=== PATIENT | female | born 1960 | race Caucasian/White ===

== ENCOUNTER 2016-05-15 10:52 | Day surgery (SDC) | payer MEDICAID ==
[~2016-05-15 10:52] MED LIST: Lactated Ringers 1,000 ML IV SCH; Midazolam 1 MG/ML 2 ML SDV ONE; Propofol 200 MG/20 ML SDV ONE; fentaNYL 100 MCG/2 ML SDV ONE
--- NOTE | 2016-05-15 12:06 | PCM.PREANE ---
Preanesthetic Assessment - Anesthesia/Transfusion/Family Hx Anesthesia History: Prior Anesthesia Without Reaction Family History of Anesthesia Reaction: No Transfusion History: No Prior Transfusion(s) - Review of Systems General: No Symptoms Pulmonary: No Symptoms Cardiovascular: No Symptoms Gastrointestinal: No symptoms Neurological: No Symptoms Other: Reports: None - Physical Assessment NPO Status Date: 05/15/16 NPO Status Time: 09:30 O2 Sat by Pulse Oximetry: 99 Respiratory Rate: 16 Vital Signs: Last Vital Signs Temp 36.7 C 05/15/16 11:18 Pulse 63 05/15/16 11:18 Resp 16 05/15/16 11:18 BP 119/70 05/15/16 11:18 Pulse Ox 99 05/15/16 11:18 Height: 1.6 m Weight: 65.317 kg ASA Class: 2 Mental Status: Alert & Oriented x3 Airway Class: Mallampati = 1 Dentition: Reports: Dentures Lungs: Clear to auscultation, Normal respiratory effort Cardiovascular: Regular Rate, Regular Rhythm - Lab Values: Laboratory Last Values Urine HCG, Qual NEGATIVE (NEGATIVE) 05/15/16 11:15 - Allergies Allergies/Adverse Reactions: Allergies Allergy/AdvReac Type Severity Reaction Status Date / Time milk Allergy Diarrhea Verified 05/10/16 13:04 - Anesthesia Plan Pre-Op Medication Ordered: None - Acknowledgements Anesthesia Type Planned: MAC Pt an Appropriate Candidate for the Planned Anesthesia: Yes Alternatives and Risks of Anesthesia Discussed w Pt/Guardian: Yes Pt/Guardian Understands and Agrees with Anesthesia Plan: Yes PreAnesthesia Questionnaire Other HEENT History: wears glasses, has upper denture Cardiovascular History: Reports: None Respiratory History: Reports: None Gastrointestinal History: Reports: Chronic constipation, Chronic diarrhea, GERD Genitourinary History: Reports: None THREAD MARKER History: Reports: Musculoskeletal History: Reports: Back pain, chronic, Other (see below) Other Musculoskeletal History: chronic shoulder pain Neurological History: Reports: Concussion Psychiatric History: Reports: Anxiety, Depression, PTSD Endocrine/Metabolic History: Reports: None Hematologic History: Reports: None Immunologic History: Reports: None Oncologic (Cancer) History: Reports: None Dermatologic History: Reports: None - Past Surgical History Head Surgeries/Procedures: Reports: Other (see below) HEENT Surgical History: Reports: None Cardiovascular Surgical History: Reports: None GI Surgical History: Reports: None Female Surgical History: Reports: Tubal ligation Endocrine Surgical History: Reports: None Neurological Surgical History: Reports: Other (see below) Other Neurological Surgeries/Procedures: had excess fluid drained from her head when she was a baby Musculoskeletal Surgical History: Reports: None - SUBSTANCE USE Smoking Status *Q: Current Every Day Smoker Tobacco Use Within Last Twelve Months: Cigarettes Second Hand Smoke Exposure: Yes Number of Drinks Per Day: 7 Recreational Drug Use History: No - HOME MEDS Home Medications: Home Meds Losartan [Cozaar] 100 mg PO DAILY 01/11/15 [History] Albuterol [Ventolin HFA] 1 - 2 puff INH ASDIRECTED PRN 04/26/16 [History] Citalopram Hydrobromide [Celexa] 40 mg PO DAILY 04/26/16 [History] Hydrochlorothiazide 25 mg PO DAILY 04/26/16 [History] Pantoprazole Sodium 40 mg PO DAILY 04/26/16 [History] buPROPion HCl [Wellbutrin Xl] 150 mg PO DAILY 04/26/16 [History] busPIRone [Buspar] 5 mg PO BID 04/26/16 [History] traZODone HCl [Trazodone HCl] 100 mg PO ASDIRECTED 04/26/16 [History] - CURRENT (IN HOUSE) MEDS Current Meds: Current Medications Lactated Ringer's (Ringers, Lactated) 1,000 mls @ 125 mls/hr IV ASDIRECTED [facility] Last Admin: 05/15/16 11:18 Dose: 125 mls/hr Discontinued Medications Fentanyl (Sublimaze) Confirm Administered Dose 100 mcg .ROUTE .STK-MED ONE Stop: 05/15/16 08:20 Midazolam HCl (Versed 1 Mg/Ml) Confirm Administered Dose 2 mg .ROUTE .STK-MED ONE Stop: 05/15/16 08:21 Propofol (Diprivan 20 Ml) Confirm Administered Dose 200 mg .ROUTE .STK-MED ONE Stop: 05/15/16 08:20 Preanesthetic Assessment - ANESTHESIA/TRANSFUSION/FAMILY HX Family History of Anesthesia Reaction: No - PHYSICAL ASSESSMENT O2 Sat by Pulse Oximetry: 99 RR: 16 Vital Signs: Last Vital Signs Temp 36.7 C 05/15/16 11:18 Pulse 63 05/15/16 11:18 Resp 16 05/15/16 11:18 BP 119/70 05/15/16 11:18 Pulse Ox 99 05/15/16 11:18 Height: 1.6 m Weight: 65.317 kg NPO Status Date: 05/15/16 NPO Status Time: 09:30 - LAB Values: Laboratory Last Values Urine HCG, Qual NEGATIVE (NEGATIVE) 05/15/16 11:15 - ALLERGIES Allergies/Adverse Reactions: Allergies Allergy/AdvReac Type Severity Reaction Status Date / Time milk Allergy Diarrhea Verified 05/10/16 13:04
[2016-05-15] MEDS ORDERED: Propofol 200 MG/20 ML SDV ONE (12:56)
--- NOTE | 2016-05-15 13:20 | PCM.OPNOTE ---
- General Post-Op/Procedure Note Date of Surgery/Procedure: 05/15/16 Operative Procedure(s): egd w bx. and colonoscopy w bx Findings: gerd and hemorrhoid Pre Op Diagnosis: abd pain Post-Op Diagnosis: Same Anesthesia Technique: Moderate sedation Primary Surgeon: Cedric Tarango Pathology: egd bx colon random bx Complications: None Condition: Good
--- NOTE | 2016-05-15 13:28 | PCM.POSTAN ---
POST ANESTHESIA ASSESSMENT - MENTAL STATUS Mental Status: alert, oriented - RESPIRATORY Respiratory Status: respiratory rate WNL, airway patent, O2 saturation stable - CARDIOVASCULAR CV Status: pulse rate WNL, blood pressure stable - GASTROINTESTINAL GI Status: no symptoms - POST OP HYDRATION Hydration Status: adequate & stable
--- NOTE | 2016-05-15 13:40 | PCM48HPAN ---
Post Anesthesia Note - EVALUATION WITHIN 48HRS OF ANESTHETIC Vital Signs in Normal Range: Yes Patient Participated in Evaluation: Yes Respiratory Function Stable: Yes Airway Patent: Yes Cardiovascular Function Stable: Yes Hydration Status Stable: Yes Pain Control Satisfactory: Yes Nausea and Vomiting Control Satisfactory: Yes Mental Status Recovered: Yes
[2016-05-15 13:43] VITALS: BP 107/61
--- NOTE | 2016-05-15 13:50 | OR ---
SURGEON: Cedric Tarango MD DATE OF PROCEDURE: 05/15/2016 PREOPERATIVE DIAGNOSIS: Abdominal pain. POSTOPERATIVE DIAGNOSES: Gastroesophageal reflux disease and hemorrhoid. PROCEDURE PERFORMED: Colonoscopy with biopsy and EGD with biopsy. COMPLICATION: None. DESCRIPTION OF PROCEDURE: EGD: The patient was taken to the endoscopy room, and with the PRODUCT DEVELOPMENT SPECIALIST, Diprivan was administered. A well-lubricated EGD scope was gently inserted through the oropharynx, down the esophagus, passing through the gastroesophageal junction, into the stomach. The mucosa was examined upon the passage. Any etiology will be noted. Once in the stomach, we continued to advance to the distal antrum, passed through the pylorus into the second portion of the duodenum. Again, the mucosa was examined for any abnormality and etiology. The scope was then retrieved back to the stomach and then retroflexed to look at the fundus of the stomach. If a biopsy was indicated, we will biopsy the antrum, body, and gastroesophageal junction. The air will be sucked out while the scope is retrieved to reduce the patient's discomfort. The patient tolerated the procedure well. There were no intraoperative complications. Dr. Tarango was present through the whole procedure. Prior to surgery, a time-out had been called, the patient identified, procedure identified and antibiotic administered. Colonoscopy: The patient was taken to the endoscopy room. A time out was called, patient identified, and procedure identified. Diprivan was then administrated. Patient went from awake to sleep, hearing doctor talking or door closing is normal. Perineum inspection and digital examination were then performed. A well-lubricated colonoscope was gently inserted through the rectum, advanced past the rectosigmoid junction, the descending colon, splenic flexure, transverse colon, hepatic flexure, ascending colon, arrived to the cecum. Cecum was identified as dictated in the finding. Then the scope was carefully withdrawn while attention was paid to the mucosal surface for any abnormality. Air will be sucked out during the scope withdrawal. At the rectum, retroflexed to examine any rectal diseases, fistula or hemorrhoids. During mucosal examination, random biopsy performed. Patient tolerated procedure well. There were no intraoperative complications, and Dr. Tarango was present throughout the whole procedure. FINDINGS: EGD finding: The patient is easily sedated with PRODUCT DEVELOPMENT SPECIALIST and Diprivan. The patient is soundly snoring. Oropharynx and proximal esophagus are free of disease and no inflammation, stricture, or ulceration observed. Distal esophagus at GE junction at 40, shows very mild salmon color change consistent with GERD. Stomach rugae is normal in appearance. There is no bile or food particle. Antrum is little bit inflamed. There is some speck of blood in the stomach but it was easily displaced by irrigation, suspect coming from either nosebleed or somewhere else and not from the stomach. Duodenum is grossly normal in appearance and the scope retrieved back to the stomach. Retroflexed look at the fundus of stomach, there is no hiatal hernia or other etiologies. Biopsy done at antrum, GE junction at 40, and body and sucked out the air while scope pulling out. Colonoscopy finding. 1. The patient is easily sedated with PRODUCT DEVELOPMENT SPECIALIST and Diprivan. The patient is soundly snoring. 2. Bowel prep is average to good. Very little liquid stool. 3. The patient's colon rather straight forward. Cecum indicated by ileocecal fold, one-to-one indentation, and light immittance. Appendiceal orifice is not observed. Mucosa examined upon scope pulling out. The patient does not have a polyp, mass, growth, inflammation, diverticulosis, stricture, ulceration, or bleeding, none of those. Random biopsy done for abdominal pain. The patient has mild internal hemorrhoids and mild external hemorrhoids. The patient would benefit from repeat colonoscopy 10 years from today or if the biopsy shows otherwise or clinically indicated otherwise. As always, thank you for the kind referral. DACIA DRUMMOND /[id number] GABRIEL
== END 2016-05-15 13:50 | disposition home or self-care (01) ==
LOC: MW.SDS 10:52
PROVIDERS: ATTEND Surgery
DX: K29.50 Unspecified chronic gastritis without bleeding (principal); F41.9 Anxiety disorder, unspecified; F32.9 Major depressive disorder, single episode, unspecified; I10 Essential (primary) hypertension; Z91.011 Allergy to milk products; Z79.899 Other long term (current) drug therapy; F17.210 Nicotine dependence, cigarettes, uncomplicated
CPT/HCPCS: 43239; 45380; 81025; J2250; J3010; J7120; 00740; 88305; 88312; J2704

== ENCOUNTER → 2016-07-12 | Outpatient (CLI) | payer MEDICAID ==
--- NOTE | 2016-07-12 16:48 | CR ---
EXAMINATION: Right shoulder HISTORY: Pain COMPARISON: None TECHNIQUE: 3 views FINDINGS/IMPRESSION: There is no acute osseous abnormality, dislocation, or fracture identified. Bon e mineralization and joint spaces appear normal.
== END ==
LOC: MW.CHORTHO 07:49
PROVIDERS: ATTEND Orthopaedic Surgery
DX: M25.511 Pain in right shoulder (principal)
CPT/HCPCS: 73030-26-RT; 73030-RT

== ENCOUNTER 2016-08-26 10:29 | Emergency (ER) | payer MEDICAID ==
[2016-08-26] MEDS ORDERED: Aspirin 81 MG Tab.Chew PO ONE (10:42)
[2016-08-26] MEDS ORDERED: Sodium Chloride 0.9% 1,000 ML IV ONE (10:42)
[2016-08-26] MEDS ORDERED: Famotidine 20 MG/2 ML SDV IVPUSH ONE (10:42)
[2016-08-26] MEDS ORDERED: Nitroglycerin 0.4 MG Tab.SL SL ONE (10:42)
[2016-08-26] MEDS ORDERED: Alum Hydrox/Mag Hydrox/Simeth 15 ML, Metoclopramide 5 MG, Lidocaine 2% 5 ML PO ONE ×3 (10:42)
[2016-08-26] MEDS ORDERED: Ketorolac 30 MG/ML SDV IVPUSH ONE (10:42)
--- NOTE | 2016-08-26 10:52 | EDM.PDOC ---
ED HPI GENERAL MEDICAL PROBLEM - General Chief Complaint: Chest Pain Stated Complaint: SOB Time Seen by Provider: 08/26/16 10:40 Source of Information: Reports: Patient History Limitations: Reports: No Limitations - History of Present Illness INITIAL COMMENTS - FREE TEXT/NARRATIVE: History of present illness: [56-year-old female comes in complaining of pressure in her chest as well as general feelings of being unwell. Patient is unable to elicit what specifically unwell means to her. When asked if she was dizzy she said she had experienced some transient dizziness but that she just did not feel right in her body.] Review of systems: As per history of present illness and below otherwise all systems reviewed and negative. Past medical history: As per history of present illness and as reviewed below otherwise noncontributory. Surgical history: As per history of present illness and as reviewed below otherwise noncontributory. Social history: No reported history of drug or alcohol abuse. Family history: As per history of present illness and as reviewed below otherwise noncontributory. Physical exam: HEENT: Atraumatic, normocephalic, pupils reactive, negative for conjunctival pallor or scleral icterus, mucous membranes moist, throat clear, neck supple, nontender, trachea midline. Lungs: Clear to auscultation, breath sounds equal bilaterally, chest nontender. Heart: S1S2, regular, negative for clicks, rubs, or JVD. Abdomen: Soft, nondistended, nontender. Negative for masses or hepatosplenomegaly. Negative for costovertebral tenderness. Pelvis: Stable nontender. Genitourinary: Deferred. Rectal: Deferred. Extremities: Atraumatic, negative for cords or calf pain. Neurovascular unremarkable. Neuro: Awake, alert, oriented. Cranial nerves II through XII unremarkable. Cerebellum unremarkable. Motor and sensory unremarkable throughout. Exam nonfocal. Patient's Global assessment is benign save as noted in the history of present illness. Patient does have a long-standing history of anxiety and is tearful on exam patient does indicate that she has had panic attacks but not for a long time. Diagnostics: [CBC, CMP, EKG, troponin, chest x-ray] Therapeutics: [IV] Impression: [Anxiety] Plan: [f/u PCP] Definitive disposition and diagnosis as appropriate pending reevaluation and review of above. Left Lower Chest Pain Score (Numeric/FACES): 6 Upper Back Pain Score (Numeric/FACES): 8 - Related Data Allergies Allergy/AdvReac Type Severity Reaction Status Date / Time milk Allergy Diarrhea Verified 08/26/16 10:35 Home Meds: Home Meds Losartan [Cozaar] 100 mg PO DAILY 01/11/15 [History] Albuterol [Ventolin HFA] 1 - 2 puff INH ASDIRECTED PRN 04/26/16 [History] Citalopram Hydrobromide [Celexa] 40 mg PO DAILY 04/26/16 [History] Hydrochlorothiazide 25 mg PO DAILY 04/26/16 [History] Pantoprazole Sodium 40 mg PO DAILY 04/26/16 [History] buPROPion HCl [Wellbutrin Xl] 150 mg PO DAILY 04/26/16 [History] busPIRone [Buspar] 5 mg PO BID 04/26/16 [History] traZODone HCl [Trazodone HCl] 100 mg PO BEDTIME 04/26/16 [History] Past Medical History HEENT History: Reports: Impaired Vision Other HEENT History: wears glasses, has upper denture Cardiovascular History: Reports: Hypertension Respiratory History: Reports: None Gastrointestinal History: Reports: Chronic Constipation, Chronic Diarrhea, GERD Genitourinary History: Reports: None SURGICAL TECHNOLOGIST History: Reports: Musculoskeletal History: Reports: Back Pain, Chronic Other Musculoskeletal History: chronic shoulder pain Neurological History: Reports: Concussion Psychiatric History: Reports: Anxiety, Depression, PTSD Endocrine/Metabolic History: Reports: None Hematologic History: Reports: None Immunologic History: Reports: None Oncologic (Cancer) History: Reports: None Dermatologic History: Reports: None - Infectious Disease History Infectious Disease History: Reports: Chicken Pox - Past Surgical History HEENT Surgical History: Reports: None Cardiovascular Surgical History: Reports: None Female Surgical History: Reports: Tubal Ligation Endocrine Surgical History: Reports: None Neurological Surgical History: Reports: Other (See Below) Social & Family History - Family History Family Medical History: Noncontributory - Tobacco Use Smoking Status *Q: Current Every Day Smoker Years of Tobacco use: 30 Packs/Tins Daily: 0.5 Used Tobacco, but Quit: No Second Hand Smoke Exposure: Yes - Caffeine Use Caffeine Use: Reports: Coffee Caffeine Use Comment: 1cup/day - Alcohol Use Number of Drinks Per Day: 7 - Recreational Drug Use Recreational Drug Use: No Drug Use in Last 12 Months: No ED ROS GENERAL - Review of Systems Review Of Systems: See Below (See history of present illness) ED EXAM, GENERAL - Physical Exam Exam: See Below (See history of present illness) Course - Vital Signs Last Recorded V/S: Last Vital Signs Temp 36.4 C 08/26/16 10:32 Pulse 58 L 08/26/16 11:59 Resp 20 08/26/16 11:59 BP 134/72 08/26/16 11:59 Pulse Ox 98 08/26/16 11:59 - Orders/Labs/Meds Orders: Active Orders 24 hr Category Date Time Status EKG 12 Lead [EKG Documentation Completion] [RC] ROUTINE Care 08/26/16 10:41 Active Chest 2V [CR] Stat Exams 08/26/16 10:42 Taken Labs: Laboratory Tests 08/26/16 08/26/16 08/26/16 Range/Units 10:45 10:45 10:45 WBC 6.18 (4.0-11.0) K/uL RBC 4.65 (4.30-5.90) M/uL Hgb 13.9 (12.0-16.0) g/dL Hct 40.4 (36.0-46.0) % MCV 86.9 (80.0-98.0) fL MCH 29.9 (27.0-32.0) pg MCHC 34.4 (31.0-37.0) g/dL RDW Std Deviation 42.0 (28.0-62.0) fl RDW Coeff of Sudheer 13 (11.0-15.0) % Plt Count 288 (150-400) K/uL MPV 9.00 (7.40-12.00) fL Neut % (Auto) 48.3 (48.0-80.0) % Lymph % (Auto) 41.4 H (16.0-40.0) % Gilpin % (Auto) 7.6 (0.0-15.0) % Eos % (Auto) 2.4 (0.0-7.0) % Baso % (Auto) 0.3 (0.0-1.5) % Neut # (Auto) 3.0 (1.4-5.7) K/uL Lymph # (Auto) 2.6 H (0.6-2.4) K/uL Gilpin # (Auto) 0.5 (0.0-0.8) K/uL Eos # (Auto) 0.2 (0.0-0.7) K/uL Baso # (Auto) 0.0 (0.0-0.1) K/uL Nucleated RBC % 0.0 /100WBC Nucleated RBCs # 0 K/uL Sodium 141 (136-146) mmol/L Potassium 3.8 (3.5-5.1) mmol/L Chloride 108 (98-110) mmol/L Carbon Dioxide 20 L (21-31) mmol/L BUN 13 (6.0-23.0) mg/dL Creatinine 0.8 (0.6-1.5) mg/dL Est Cr Clr Drug Dosing 66.50 mL/min Estimated GFR (MDRD) > 60.0 ml/min Glucose 86 (60-110) mg/dL Calcium 9.4 (8.8-10.8) mg/dL Total Bilirubin 0.3 (0.1-1.5) mg/dL AST 19 (5-40) IU/L ALT 15 (8-54) IU/L Alkaline Phosphatase 71 (40-150) Troponin I < 0.10 (0.0-0.29) NG/ML Total Protein 7.8 (6.0-8.0) g/dL Albumin 4.4 (3.5-5.0) g/dL Globulin 3.4 (2.0-3.5) g/dL Albumin/Globulin Ratio 1.3 (1.3-2.8) Amylase 47 (10-90) U/L Lipase 33 (7-80) U/L Meds: Medications Discontinued Medications Generic Name Dose Route Start Last Admin Trade Name Freq PRN Reason Stop Dose Admin Al Hydroxide/Mg Hydroxide Confirm 08/26/16 10:55 08/26/16 11:15 Mag-Al Plus Administered 08/26/16 10:56 Not Given Dose 30 ml .ROUTE .STK-MED ONE Aspirin 324 mg 08/26/16 10:42 08/26/16 11:08 Aspirin PO 08/26/16 10:43 324 mg ONETIME ONE Administration Aspirin Confirm 08/26/16 10:55 08/26/16 11:15 Aspirin Administered 08/26/16 10:56 Not Given Dose 324 mg .ROUTE .STK-MED ONE Al Hydroxide/Mg Hydroxide 15 0 ml 08/26/16 10:42 08/26/16 11:09 ml/ Metoclopramide HCl 5 mg/ PO 08/26/16 10:43 25 each Lidocaine HCl 5 ml ONETIME ONE Administration Famotidine 20 mg 08/26/16 10:42 08/26/16 11:12 Pepcid IVPUSH 08/26/16 10:43 20 mg ONETIME ONE Administration Famotidine Confirm 08/26/16 10:55 08/26/16 11:15 Pepcid Administered 08/26/16 10:56 Not Given Dose 20 mg .ROUTE .STK-MED ONE Sodium Chloride 1,000 mls @ 999 mls/hr 08/26/16 10:42 08/26/16 11:07 Normal Saline IV 08/26/16 11:42 999 mls/hr .Bolus ONE Administration Ketorolac Tromethamine 30 mg 08/26/16 10:42 08/26/16 11:14 Toradol IVPUSH 08/26/16 10:43 30 mg ONETIME ONE Administration Ketorolac Tromethamine Confirm 08/26/16 10:54 08/26/16 11:15 Toradol Administered 08/26/16 10:55 Not Given Dose 30 mg .ROUTE .STK-MED ONE Lidocaine HCl Confirm 08/26/16 10:55 08/26/16 11:15 Xylocaine 2% Viscous Administered 08/26/16 10:56 Not Given Dose 15 ml .ROUTE .STK-MED ONE Lorazepam 2 mg 08/26/16 12:15 08/26/16 12:18 Ativan IVPUSH 08/26/16 12:16 2 mg ONETIME ONE Administration Lorazepam Confirm 08/26/16 12:16 Ativan Administered 08/26/16 12:17 Dose 2 mg .ROUTE .STK-MED ONE Metoclopramide HCl Confirm 08/26/16 10:54 08/26/16 11:15 Reglan Administered 08/26/16 10:55 Not Given Dose 10 mg .ROUTE .STK-MED ONE Nitroglycerin 0.4 mg 08/26/16 10:42 08/26/16 11:10 Nitrostat SL 08/26/16 10:43 0.4 mg ONETIME ONE Administration Nitroglycerin Confirm 08/26/16 10:54 08/26/16 11:15 Nitrostat Administered 08/26/16 10:55 Not Given Dose 0.4 mg .ROUTE .STK-MED ONE Departure - Departure Time of Disposition: 13:06 Disposition: Home, Self-Care 01 Condition: Good Clinical Impression: Anxiety Forms: ED Department Discharge Additional Instructions: The following information is given to patients seen in the emergency department who are being discharged to home. This information is to outline your options for follow-up care. We provide all patients seen in our emergency department with a follow-up referral. The need for follow-up, as well as the timing and circumstances, are variable depending upon the specifics of your emergency department visit. If you don't have a primary care physician on staff, we will provide you with a referral. We always advise you to contact your personal physician following an emergency department visit to inform them of the circumstance of the visit and for follow-up with them and/or the need for any referrals to a consulting specialist. The emergency department will also refer you to a specialist when appropriate. This referral assures that you have the opportunity for follow-up care with a specialist. All of these measure are taken in an effort to provide you with optimal care, which includes your follow-up. Under all circumstances we always encourage you to contact your private physician who remains a resource for coordinating your care. When calling for follow-up care, please make the office aware that this follow-up is from your recent emergency room visit. If for any reason you are refused follow-up, please contact the [facility] Emergency Department at and asked to speak to the emergency department charge nurse. Follow-up with PCP 1-2 days Return to ED as needed as discussed - My Orders Last 24 Hours: My Active Orders 08/26/16 10:42 Chest 2V [CR] Stat - Assessment/Plan Last 24 Hours: My Active Orders 08/26/16 10:42 Chest 2V [CR] Stat
[2016-08-26] MEDS ORDERED: Nitroglycerin 0.4 MG Tab.SL ONE (10:54)
[2016-08-26] MEDS ORDERED: Metoclopramide Oral Soln 10 MG/10 ML UD Cup ONE (10:54)
[2016-08-26] MEDS ORDERED: Ketorolac 30 MG/ML SDV ONE (10:54)
[2016-08-26] MEDS ORDERED: Famotidine 20 MG/2 ML SDV ONE (10:55)
[2016-08-26] MEDS ORDERED: Aluminum Hydroxide/Magnesium Hydroxide/Simethicone Susp 30 ML Cup ONE (10:55)
[2016-08-26] MEDS ORDERED: Lidocaine 2% Viscous Solution 15 ML Cup ONE (10:55)
[2016-08-26] MEDS ORDERED: Aspirin 81 MG Tab.Chew ONE (10:55)
[2016-08-26 11:12] LABS: CHLORIDE,CL 108 mmol/L (98-110); SODIUM,NA 141 mmol/L (136-146)
[2016-08-26] MEDS ORDERED: LORazepam 2 MG/ML MDV IVPUSH ONE (12:15)
[2016-08-26] MEDS ORDERED: LORazepam 2 MG/ML MDV ONE (12:16)
[2016-08-26 13:22] VITALS: BP 126/65
--- NOTE | 2016-08-27 17:19 | CR ---
EXAM DATE: 08/26/16 PATIENT'S AGE: 56 Patient: NEYDA SIMS Facility: [place], [place] Site . Site : [id number] Study: XRay Chest [id number] 11:05:09 AM Ordering Physician: Doctor Mclain Final Report: INDICATION: Chest pain and SOB since this morning. FINDINGS: PA and lateral views of the chest were obtained. The cardiac silhouette and pulmonary vasculature are within normal limits. The lungs are clear bilaterally. IMPRESSION: No evidence of acute pulmonary disease. Dictated by: Steven Childers MD @ 08/26/2016 11:09:28 (Electronic Signature) Report Signed by Proxy. GABRIEL
== END 2016-08-26 13:20 | disposition home or self-care (01) ==
LOC: MW.ED 10:29
DX: F41.9 Anxiety disorder, unspecified (principal); I10 Essential (primary) hypertension; K21.9 Gastro-esophageal reflux disease without esophagitis; F17.210 Nicotine dependence, cigarettes, uncomplicated; Z91.011 Allergy to milk products; Z79.899 Other long term (current) drug therapy
CPT/HCPCS: 36415; 71020; 80053; 82150; 83690; 84484; 85025; 93005; 96361; 96374; 96375; 99285; A9270; J1885; J2060; J7040; 99283

== ENCOUNTER 2017-05-26 12:51 | Emergency (ER) | payer MEDICAID ==
[2017-05-26 13:48] VITALS: BP 129/88
--- NOTE | 2017-05-26 14:11 | EDM.PDOC ---
ED HPI GENERAL MEDICAL PROBLEM - General Chief Complaint: Neck Problem Stated Complaint: PAIN Time Seen by Provider: 05/26/17 13:41 Source of Information: Reports: Patient History Limitations: Reports: No Limitations - History of Present Illness INITIAL COMMENTS - FREE TEXT/NARRATIVE: History of present illness: []Patient had neck surgery by in [place] on May 15 and ran out of her oxycodone on May 22. She called for prescription but it has not been sent as of yet. She cannot sleep because of the pain. He fevers, chills, difficulty swallowing nausea or vomiting. Review of systems: As per history of present illness and below otherwise all systems reviewed and negative. Past medical history: As per history of present illness and as reviewed below otherwise noncontributory. Surgical history: As per history of present illness and as reviewed below otherwise noncontributory. Social history: No reported history of drug or alcohol abuse. Family history: As per history of present illness and as reviewed below otherwise noncontributory. Physical exam: General: Well developed, well nourished in NAD HEENT: Atraumatic, normocephalic, pupils reactive, negative for conjunctival pallor or scleral icterus, mucous membranes moist, throat clear, neck supple, nontender, trachea midline. Incision intact without signs of infection Lungs: Clear to auscultation, breath sounds equal bilaterally, chest nontender. Heart: S1S2, regular, negative for clicks, rubs, or JVD. Abdomen: Soft, nondistended, nontender. Negative for masses or hepatosplenomegaly. Negative for costovertebral tenderness. Pelvis: Stable nontender. Genitourinary: Deferred. Rectal: Deferred. Extremities: Atraumatic, negative for cords or calf pain. Neurovascular unremarkable. Neuro: Awake, alert, oriented. Cranial nerves II through XII unremarkable. Cerebellum unremarkable. Motor and sensory unremarkable throughout. Exam nonfocal. Diagnostics: [] Therapeutics: [] Impression: []Post operative pain, med refill Plan: []Tramadol 15 tablets take as directed follow-up with your surgeon Definitive disposition and diagnosis as appropriate pending reevaluation and review of above. Neck Pain Score (Numeric/FACES): 8 - Related Data Allergies Allergy/AdvReac Type Severity Reaction Status Date / Time acetaminophen [From Vicodin] Allergy Itching Verified 05/26/17 13:36 codeine Allergy Rash Verified 05/26/17 13:35 hydrocodone [From Vicodin] Allergy Itching Verified 05/26/17 13:36 milk Allergy Diarrhea Verified 08/26/16 10:35 Home Meds: Home Meds Losartan [Cozaar] 100 mg PO DAILY 01/11/15 [History] Albuterol [Ventolin HFA] 1 - 2 puff INH ASDIRECTED PRN 04/26/16 [History] Hydrochlorothiazide 25 mg PO DAILY 04/26/16 [History] buPROPion HCl [Wellbutrin Xl] 150 mg PO DAILY 04/26/16 [History] busPIRone [Buspar] 5 mg PO BID 04/26/16 [History] traZODone HCl [Trazodone HCl] 100 mg PO BEDTIME 04/26/16 [History] Carisoprodol [Soma] 250 mg PO 05/26/17 [History] Desvenlafaxine Succinate [Pristiq ER] 25 mg PO 05/26/17 [History] Gabapentin [Neurontin] 100 mg PO 05/26/17 [History] oxyCODONE HCl/Acetaminophen [Endocet 5-325 Tablet] 1 each PO 05/26/17 [History] Past Medical History HEENT History: Reports: Impaired Vision Other HEENT History: wears glasses, has upper denture Cardiovascular History: Reports: Hypertension Respiratory History: Reports: None Gastrointestinal History: Reports: Chronic Constipation, Chronic Diarrhea, GERD Genitourinary History: Reports: None INTER F[employer] History: Reports: Musculoskeletal History: Reports: Back Pain, Chronic Other Musculoskeletal History: chronic shoulder pain Neurological History: Reports: Concussion Psychiatric History: Reports: Anxiety, Depression, PTSD Endocrine/Metabolic History: Reports: None Hematologic History: Reports: None Immunologic History: Reports: None Oncologic (Cancer) History: Reports: None Dermatologic History: Reports: None - Infectious Disease History Infectious Disease History: Reports: Chicken Pox - Past Surgical History Head Surgeries/Procedures: Reports: Other (See Below) HEENT Surgical History: Reports: None Cardiovascular Surgical History: Reports: None Female Surgical History: Reports: Tubal Ligation Endocrine Surgical History: Reports: None Neurological Surgical History: Reports: Other (See Below) Social & Family History - Family History Family Medical History: Noncontributory - Tobacco Use Smoking Status *Q: Former Smoker Years of Tobacco use: 30 Packs/Tins Daily: 0.5 Used Tobacco, but Quit: Yes Month/Year Tobacco Last Used: Second Hand Smoke Exposure: Yes - Caffeine Use Caffeine Use: Reports: Coffee, Soda Caffeine Use Comment: 1cup/day - Alcohol Use Number of Drinks Per Day: 7 - Recreational Drug Use Recreational Drug Use: No Drug Use in Last 12 Months: No ED ROS GENERAL - Review of Systems Review Of Systems: See Below (See history of present illness) ED EXAM, SKIN/RASH Exam: See Below (See history of present illness) Course - Vital Signs Last Recorded V/S: Last Vital Signs Temp 96.8 F 05/26/17 13:46 Pulse 72 05/26/17 13:46 Resp 18 05/26/17 13:46 BP 129/88 05/26/17 13:46 Pulse Ox 96 05/26/17 13:46 Departure - Departure Time of Disposition: 14:11 Disposition: Home, Self-Care 01 Condition: Good Clinical Impression: Medication refill, Post-operative pain - Discharge Information Referrals: Crystal Solorzano NP [Primary Care Provider] - Additional Instructions: The following information is given to patients seen in the emergency department who are being discharged to home. This information is to outline your options for follow-up care. We provide all patients seen in our emergency department with a follow-up referral. The need for follow-up, as well as the timing and circumstances, are variable depending upon the specifics of your emergency department visit. If you don't have a primary care physician on staff, we will provide you with a referral. We always advise you to contact your personal physician following an emergency department visit to inform them of the circumstance of the visit and for follow-up with them and/or the need for any referrals to a consulting specialist. The emergency department will also refer you to a specialist when appropriate. This referral assures that you have the opportunity for follow-up care with a specialist. All of these measure are taken in an effort to provide you with optimal care, which includes your follow-up. Under all circumstances we always encourage you to contact your private physician who remains a resource for coordinating your care. When calling for follow-up care, please make the office aware that this follow-up is from your recent emergency room visit. If for any reason you are refused follow-up, please contact the [facility] at and asked to speak to the emergency department charge nurse. Follow-up with your surgeon as directed. Tramadol for pain other meds as directed [facility] [address] [place] [id number]
== END 2017-05-26 14:40 | disposition home or self-care (01) ==
LOC: MW.ED 12:51
DX: Z76.0 Encounter for issue of repeat prescription (principal); G89.18 Other acute postprocedural pain; I10 Essential (primary) hypertension; K21.9 Gastro-esophageal reflux disease without esophagitis; Z88.5 Allergy status to narcotic agent; Z88.8 Allergy status to other drugs, medicaments and biological substances; Z91.011 Allergy to milk products; Z79.899 Other long term (current) drug therapy; Z87.891 Personal history of nicotine dependence
CPT/HCPCS: 99282; 99283

== ENCOUNTER 2017-11-17 19:17 | Inpatient (IN) | payer MEDICAID ==
[2017-11-17] MEDS ORDERED: Ondansetron 4 MG/2 ML SDV IVPUSH ONE (19:47)
[2017-11-17] MEDS ORDERED: LORazepam 2 MG/ML SDV IVPUSH ONE (19:47)
[2017-11-17] MEDS ORDERED: MVI, Adult with Vitamin K 10 ML, Thiamine 100 MG, Folic Acid 1 MG in Sodium Chloride 0.... IV ONE ×4 (19:47)
[2017-11-17] MEDS ORDERED: Sodium Chloride 0.9% 1,000 ML IV ONE (19:48)
[2017-11-17] MEDS ORDERED: Ondansetron 4 MG Tab.DIS ONE (20:17)
[2017-11-17] MEDS ORDERED: Ondansetron 4 MG Tab.DIS PO ONE (20:20)
[2017-11-17 20:39] LABS: CHLORIDE,CL 104 mmol/L (98-107); SODIUM,NA 141 mmol/L (136-145)
--- NOTE | 2017-11-17 20:52 | EDM.PDOC ---
ED HPI GENERAL MEDICAL PROBLEM - General Chief Complaint: Drug or Alcohol Abuse Stated Complaint: DETOX Time Seen by Provider: 11/17/17 19:32 Source of Information: Reports: Patient History Limitations: Reports: No Limitations - History of Present Illness INITIAL COMMENTS - FREE TEXT/NARRATIVE: HISTORY AND PHYSICAL: History of present illness: Patient is a 57-year-old female who presents to the emergency room requesting alcohol detox. She states over the past week she has been drinking heavily and would like assistance abstaining. She states prior to this last week she had been sober for 2 years. She states she last drank prior to arrival to the emergency room. She is here with her daughter was concerned that if she goes back home without "detoxing" that she'll continue to drink alcohol. Patient says she feels anxious, has nausea, vomiting and generally feeling unwell for the past several hours. She states that these symptoms will "only get worse" and she can't do it by herself. She denies any fever, chills, chest pain, shortness of breath or cough. Denies any abdominal pain, diarrhea, constipation or dysuria. No recent falls, trauma, head injuries. Review of systems: As per history of present illness and below otherwise all systems reviewed and negative. Past medical history: As per history of present illness and as reviewed below otherwise noncontributory. Surgical history: As per history of present illness and as reviewed below otherwise noncontributory. Social history: No reported history of drug or alcohol abuse. Family history: As per history of present illness and as reviewed below otherwise noncontributory. Physical exam: General: Well developed and well-nourished 52-year-old female. Alert and oriented. Nontoxic appearing and in no acute distress. HEENT: Atraumatic, normocephalic, pupils equal and reactive bilaterally, negative for conjunctival pallor or scleral icterus, mucous membranes moist, throat clear, neck supple, nontender, trachea midline. No drooling or trismus noted. No meningeal signs Lungs: Clear to auscultation, breath sounds equal bilaterally, chest nontender. Heart: S1S2, regular rate and rhythm without overt murmur Abdomen: Soft, nondistended, nontender. Negative for masses or hepatosplenomegaly. Negative for costovertebral tenderness. Pelvis: Stable nontender. Genitourinary: Deferred. Rectal: Deferred. Skin: Intact, warm, dry. No lesions or rashes noted. Extremities: Atraumatic, negative for cords or calf pain. Neurovascular unremarkable. Neuro: Awake, alert, oriented. Cranial nerves II through XII unremarkable. Cerebellum unremarkable. Motor and sensory unremarkable throughout. Exam nonfocal. Notes: I discussed with the daughter and patient about what their expectations are "detox". The patient states that she "can't do it on Low" and is requesting IV fluids and medications. Both patient and daughter are unsure if they are wanting inpatient or outpatient alcohol treatment. I encouraged them to talk about this while we are getting fluids and waiting on lab work. Currently vital signs are stable Patient is resting with her eyes closed and breathing easy. Labs are unremarkable with exception of alcohol level of 346, potassium of 3.2. Not yet received her urine. I did contact Dr. Barakat is agreeable to keeping this patient. After reviewing the case he would like to keep the patient MedSurg observation. Diagnostics: CBC, CMP, UA, Drug Screen, ETOH Therapeutics: IV fluids, Banana Bag, Zofran, Ativan Impression: Alcohol Abuse Hypokalemia Plan: Observation Admission Definitive disposition and diagnosis as appropriate pending reevaluation and review of above. - Related Data Allergies Allergy/AdvReac Type Severity Reaction Status Date / Time acetaminophen [From Vicodin] Allergy Itching Verified 11/17/17 19:35 codeine Allergy Rash Verified 11/17/17 19:35 hydrocodone [From Vicodin] Allergy Itching Verified 11/17/17 19:35 milk Allergy Diarrhea Verified 11/17/17 19:35 Home Meds: Home Meds Losartan [Cozaar] 100 mg PO DAILY 01/11/15 [History] Hydrochlorothiazide 25 mg PO DAILY 04/26/16 [History] traZODone HCl [Trazodone HCl] 2 tab PO BEDTIME 04/26/16 [History] Desvenlafaxine Succinate [Pristiq ER] 50 mg PO DAILY 05/26/17 [History] Amitriptyline HCl 50 mg PO BEDTIME 11/17/17 [History] Pantoprazole [ProTONIX] 40 mg PO DAILY 11/17/17 [History] amLODIPine Besylate [Amlodipine Besylate] 5 mg PO DAILY 11/17/17 [History] Past Medical History HEENT History: Reports: Impaired Vision Other HEENT History: wears glasses, has upper denture Cardiovascular History: Reports: Hypertension Respiratory History: Reports: None Gastrointestinal History: Reports: Chronic Constipation, Chronic Diarrhea, GERD Genitourinary History: Reports: None SURGERY SPECIALIST History: 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: Musculoskeletal History: Reports: Back Pain, Chronic Other Musculoskeletal History: chronic shoulder pain Neurological History: Reports: Concussion Psychiatric History: Reports: Anxiety, Depression, PTSD Endocrine/Metabolic History: Reports: None Hematologic History: Reports: None Immunologic History: Reports: None Oncologic (Cancer) History: Reports: None Dermatologic History: Reports: None - Infectious Disease History Infectious Disease History: Reports: None - Past Surgical History Head Surgeries/Procedures: Reports: Other (See Below) HEENT Surgical History: Reports: None Cardiovascular Surgical History: Reports: None Female Surgical History: Reports: Tubal Ligation Endocrine Surgical History: Reports: None Neurological Surgical History: Reports: Other (See Below) Social & Family History - Family History Family Medical History: Noncontributory - Tobacco Use Smoking Status *Q: Current Every Day Smoker Years of Tobacco use: 35 Packs/Tins Daily: 0.5 - Caffeine Use Caffeine Use: Reports: Coffee, Soda Caffeine Use Comment: 1cup/day - Recreational Drug Use Recreational Drug Use: No ED ROS GENERAL - Review of Systems Review Of Systems: ROS reveals no pertinent complaints other than HPI. ED EXAM, GENERAL - Physical Exam Exam: See Below (see dictation) Course - Vital Signs Last Recorded V/S: Last Vital Signs Temp 97.8 F 11/17/17 19:35 Pulse 120 H 11/17/17 19:35 Resp 20 11/17/17 19:35 BP 151/102 H 11/17/17 19:35 Pulse Ox 96 11/17/17 19:35 - Orders/Labs/Meds Orders: Active Orders 24 hr Category Date Time Status Admission Status [Patient Status] [ADT] Stat ADT 11/17/17 21:32 Ordered DRUG SCREEN, URINE [URCHEM] Stat Lab 11/17/17 21:27 Received UA W/MICROSCOPIC [URIN] Stat Lab 11/17/17 21:27 Received MVI, Adult with Vitamin K [Infuvite Adult] 10 ml Med 11/17/17 19:47 Active Thiamine [Vitamin B-1] 100 mg Folic Acid 1 mg Sodium Chloride 0.9% [Normal Saline] 1,000 ml IV ONETIME Medication Orders Multivitamins/Minerals 10 ml/Thiamine HCl 100 mg/ Folic Acid 1 mg/ Sodium Chloride 1,011.2 mls @ 250 mls/hr IV ONETIME ONE Stop: 11/17/17 23:49 Last Admin: 11/17/17 20:08 Dose: 250 mls/hr Labs: Laboratory Tests 11/17/17 11/17/17 Range/Units 19:59 19:59 WBC 5.50 (4.0-11.0) K/uL RBC 4.70 (4.30-5.90) M/uL Hgb 14.6 (12.0-16.0) g/dL Hct 41.3 (36.0-46.0) % MCV 87.9 (80.0-98.0) fL MCH 31.1 (27.0-32.0) pg MCHC 35.4 (31.0-37.0) g/dL RDW Std Deviation 46.9 (28.0-62.0) fl RDW Coeff of Sudheer 15 (11.0-15.0) % Plt Count 227 (150-400) K/uL MPV 9.10 (7.40-12.00) fL Neut % (Auto) 51.6 (48.0-80.0) % Lymph % (Auto) 42.2 H (16.0-40.0) % [place] % (Auto) 5.8 (0.0-15.0) % Eos % (Auto) 0.2 (0.0-7.0) % Baso % (Auto) 0.2 (0.0-1.5) % Neut # (Auto) 2.8 (1.4-5.7) K/uL Lymph # (Auto) 2.3 (0.6-2.4) K/uL [place] # (Auto) 0.3 (0.0-0.8) K/uL Eos # (Auto) 0.0 (0.0-0.7) K/uL Baso # (Auto) 0.0 (0.0-0.1) K/uL Nucleated RBC % 0.0 /100WBC Nucleated RBCs # 0 K/uL Sodium 141 (136-145) mmol/L Potassium 3.2 L (3.5-5.1) mmol/L Chloride 104 (98-107) mmol/L Carbon Dioxide 21.6 (21.0-32.0) mmol/L BUN 8 (7.0-18.0) mg/dL Creatinine 0.7 (0.6-1.0) mg/dL Est Cr Clr Drug Dosing 75.12 mL/min Estimated GFR (MDRD) > 60.0 ml/min Glucose 108 H (74-106) mg/dL Calcium 8.0 L (8.5-10.1) mg/dL Total Bilirubin 0.3 (0.2-1.0) mg/dL AST 64 H (15-37) IU/L ALT 49 (14-63) IU/L Alkaline Phosphatase 118 H (46-116) U/L Total Protein 7.7 (6.4-8.2) g/dL Albumin 3.8 (3.4-5.0) g/dL Globulin 3.9 H (2.0-3.5) g/dL Albumin/Globulin Ratio 1.0 L (1.3-2.8) TSH 3rd Generation 3.19 (0.36-3.74) uIU/mL Ethyl Alcohol 346 mg/dL Meds: Medications Generic Name Dose Route Start Last Admin Trade Name Freq PRN Reason Stop Dose Admin Multivitamins/Minerals 10 ml/ 1,011.2 mls @ 250 mls/hr 11/17/17 19:47 20:08 Thiamine HCl 100 mg/ Folic IV 11/17/17 23:49 250 mls/hr Acid 1 mg/ Sodium Chloride ONETIME ONE Administration Discontinued Medications Generic Name Dose Route Start Last Admin Trade Name Freq PRN Reason Stop Dose Admin Sodium Chloride 1,000 mls @ 999 mls/hr 11/17/17 19:48 11/17/17 21:14 Normal Saline IV 11/17/17 20:48 999 mls/hr STAT ONE Administration Lorazepam 1 mg 11/17/17 19:47 11/17/17 20:09 Ativan IVPUSH 11/17/17 19:48 1 mg ONETIME ONE Administration Ondansetron HCl 4 mg 11/17/17 19:47 11/17/17 20:09 Zofran IVPUSH 11/17/17 19:48 4 mg ONETIME ONE Administration Ondansetron HCl Confirm 11/17/17 20:17 11/17/17 20:22 Zofran Odt Administered 11/17/17 20:18 Not Given Dose 4 mg .ROUTE .STK-MED ONE Ondansetron HCl 4 mg 11/17/17 20:20 11/17/17 20:22 Zofran Odt PO 11/17/17 20:21 4 mg ONETIME ONE Administration Departure - Departure Time of Disposition: 21:35 Disposition: Refer to Observation Clinical Impression: Alcohol abuse, Hypokalemia - Discharge Information Referrals: PCP,None [Primary Care Provider] - Forms: ED Department Discharge - My Orders Last 24 Hours: My Active Orders 11/17/17 19:47 MVI, Adult with Vitamin K [Infuvite Adult] 10 ml Thiamine [Vitamin B-1] 100 mg Folic Acid 1 mg Sodium Chloride 0.9% [Normal Saline] 1,000 ml IV ONETIME 11/17/17 21:27 DRUG SCREEN, URINE [URCHEM] Stat UA W/MICROSCOPIC [URIN] Stat 11/17/17 21:32 Admission Status [Patient Status] [ADT] Stat - Assessment/Plan Last 24 Hours: My Active Orders 11/17/17 19:47 MVI, Adult with Vitamin K [Infuvite Adult] 10 ml Thiamine [Vitamin B-1] 100 mg Folic Acid 1 mg Sodium Chloride 0.9% [Normal Saline] 1,000 ml IV ONETIME 11/17/17 21:27 DRUG SCREEN, URINE [URCHEM] Stat UA W/MICROSCOPIC [URIN] Stat 11/17/17 21:32 Admission Status [Patient Status] [ADT] Stat
--- NOTE | 2017-11-17 21:02 | PCM.SN ---
- Free Text/Narrative Note: Called by nursing as they have been unable to obtain PIV access and patient has a history of difficult IV start. Bilateral deep brachial veins are severely depressed on ultrasound, unable to appreciate external jugular veins. Rt saphenous vein is palpated at the Rt ankle, 20g PIV was started, draws blood and flushes with ease. Secured with tape and tegaderm. Pt tolerated placement well.
[2017-11-17] MEDS ORDERED: Temazepam 15 MG Cap PO PRN (22:00)
[2017-11-17] MEDS ORDERED: Sodium Chloride 0.9% 1,000 ML IV SCH (23:15)
[2017-11-18] MEDS: LORazepam 2 MG/ML SDV IVPUSH PRN ×4 (04:33→17:55)
[2017-11-18] MEDS ORDERED: Sodium Chloride 0.9% with KCl 1,000 ML IV SCH (06:30)
--- NOTE | 2017-11-18 06:51 | PCM.HP ---
H&P History of Present Illness - General Date of Service: 11/18/17 Admit Problem/Dx: Admission Diagnosis/Problem Admission Diagnosis/Problem Alcohol abuse Source of Information: Patient, Old Records History Limitations: Reports: Intoxication - History of Present Illness Initial Comments - Free Text/Narative: The patient is a 57-year-old lady who had presented to the emergency department out of concern for acute alcohol intoxication and withdrawal. The patient has a history of alcohol dependency and had been sober for approximately 2 years. The patient started drinking heavily one week ago. Further, the patient reports that she had been drinking heavily she did have difficulties with shaking, anxiety and denied any withdrawal seizures. Currently the patient has denied any nausea or vomiting. She feels like she is shaking inside. The patient also says that in the past she has had hematemesis but none recently. The patient has not been diagnosed with cirrhosis or alcohol associated liver disease. The patient has no other complaints at the present time. Onset of Symptoms: Reports: Gradual Duration of Symptoms: Reports: Week(s): - Related Data Allergies/Adverse Reactions: Allergies Allergy/AdvReac Type Severity Reaction Status Date / Time acetaminophen [From Vicodin] Allergy Itching Verified 11/17/17 19:35 codeine Allergy Rash Verified 11/17/17 19:35 hydrocodone [From Vicodin] Allergy Itching Verified 11/17/17 19:35 milk Allergy Diarrhea Verified 11/17/17 19:35 Home Medications: Home Meds Losartan [Cozaar] 100 mg PO DAILY 01/11/15 [History] Hydrochlorothiazide 25 mg PO DAILY 04/26/16 [History] traZODone HCl [Trazodone HCl] 2 tab PO BEDTIME 04/26/16 [History] Desvenlafaxine Succinate [Pristiq ER] 50 mg PO DAILY 05/26/17 [History] Amitriptyline HCl 50 mg PO BEDTIME 11/17/17 [History] Pantoprazole [ProTONIX] 40 mg PO DAILY 11/17/17 [History] amLODIPine Besylate [Amlodipine Besylate] 5 mg PO DAILY 11/17/17 [History] Past Medical History HEENT History: Reports: Impaired Vision Other HEENT History: wears glasses, has upper denture Cardiovascular History: Reports: Hypertension Respiratory History: Reports: None Gastrointestinal History: Reports: Chronic Constipation, Chronic Diarrhea, GERD Genitourinary History: Reports: None 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: Musculoskeletal History: Reports: Back Pain, Chronic Other Musculoskeletal History: chronic shoulder pain Neurological History: Reports: Concussion Psychiatric History: Reports: Anxiety, Depression, PTSD Endocrine/Metabolic History: Reports: None Hematologic History: Reports: None Immunologic History: Reports: None Oncologic (Cancer) History: Reports: None Dermatologic History: Reports: None - Infectious Disease History Infectious Disease History: Reports: None - Past Surgical History Head Surgeries/Procedures: Reports: Other (See Below) HEENT Surgical History: Reports: None Cardiovascular Surgical History: Reports: None Female Surgical History: Reports: Tubal Ligation Endocrine Surgical History: Reports: None Neurological Surgical History: Reports: Other (See Below) Social & Family History - Family History Family Medical History: Noncontributory - Tobacco Use Smoking Status *Q: Current Every Day Smoker Years of Tobacco use: 35 Packs/Tins Daily: 0.3 - Caffeine Use Caffeine Use: Reports: Coffee, Soda Caffeine Use Comment: 1cup/day - Alcohol Use Alcohol Use History: Yes Days Per Week of Alcohol Use: 7 Number of Drinks Per Day: 10 Total Drinks Per Week: 70 Alcohol Use Frequency: Binges - Recreational Drug Use Recreational Drug Use: No H&P Review of Systems - Review of Systems: Review Of Systems: See Below General: Reports: Decreased Appetite HEENT: Reports: No Symptoms Pulmonary: Reports: Cough Cardiovascular: Reports: Palpitations Gastrointestinal: Reports: Abdominal Pain. Denies: Hematemesis, Hematochezia Genitourinary: Reports: No Symptoms Musculoskeletal: Reports: No Symptoms Skin: Reports: No Symptoms Psychiatric: Reports: No Symptoms Neurological: Reports: No Symptoms Hematologic/Lymphatic: Reports: No Symptoms Immunologic: Reports: No Symptoms Exam - Exam Exam: See Below - Vital Signs Vital Signs: Last Vital Signs Temp 36.1 C 11/17/17 22:15 Pulse 108 H 11/17/17 22:15 Resp 20 11/17/17 22:15 BP 157/95 H 11/17/17 22:15 Pulse Ox 96 11/17/17 22:15 Weight: 68.492 kg - Exam Quality Assessment: No: Supplemental Oxygen General: Alert, Oriented, Cooperative HEENT: Conjunctiva Clear, EACs Clear, EOMI, Nares Patent, Pupils Equal. No: Mucosa Moist & Citrus (Oropharynx dry) Neck: Supple, Trachea Midline. No: Lymphadenopathy Lungs: Clear to Auscultation, Normal Respiratory Effort Cardiovascular: Regular Rhythm, Tachycardia GI/Abdominal Exam: Normal Bowel Sounds, Soft, Non-Tender, No Distention. No: Guarding, Rigid, Rebound (Female) Exam: Deferred Rectal (Female) Exam: Deferred Back Exam: Normal Inspection, Full Range of Motion Extremities: Normal Inspection, No Pedal Edema Skin: Warm, Dry, Intact Neurological: Cranial Nerves Intact Neuro Extensive - Mental Status: Alert, Oriented x3 Psychiatric: Alert, Normal Affect, Normal Mood. No: Withdrawal Symptoms - Patient Data Lab Results Last 24 hrs: Laboratory Results - last 24 hr 11/17/17 11/17/17 11/17/17 Range/Units 19:59 19:59 21:27 WBC 5.50 (4.0-11.0) K/uL RBC 4.70 (4.30-5.90) M/uL Hgb 14.6 (12.0-16.0) g/dL Hct 41.3 (36.0-46.0) % MCV 87.9 (80.0-98.0) fL MCH 31.1 (27.0-32.0) pg MCHC 35.4 (31.0-37.0) g/dL RDW Std Deviation 46.9 (28.0-62.0) fl RDW Coeff of Sudheer 15 (11.0-15.0) % Plt Count 227 (150-400) K/uL MPV 9.10 (7.40-12.00) fL Neut % (Auto) 51.6 (48.0-80.0) % Lymph % (Auto) 42.2 H (16.0-40.0) % Tripp % (Auto) 5.8 (0.0-15.0) % Eos % (Auto) 0.2 (0.0-7.0) % Baso % (Auto) 0.2 (0.0-1.5) % Neut # (Auto) 2.8 (1.4-5.7) K/uL Lymph # (Auto) 2.3 (0.6-2.4) K/uL Tripp # (Auto) 0.3 (0.0-0.8) K/uL Eos # (Auto) 0.0 (0.0-0.7) K/uL Baso # (Auto) 0.0 (0.0-0.1) K/uL Nucleated RBC % 0.0 /100WBC Nucleated RBCs # 0 K/uL Sodium 141 (136-145) mmol/L Potassium 3.2 L (3.5-5.1) mmol/L Chloride 104 (98-107) mmol/L Carbon Dioxide 21.6 (21.0-32.0) mmol/L BUN 8 (7.0-18.0) mg/dL Creatinine 0.7 (0.6-1.0) mg/dL Est Cr Clr Drug Dosing 75.12 mL/min Estimated GFR (MDRD) > 60.0 ml/min Glucose 108 H (74-106) mg/dL Calcium 8.0 L (8.5-10.1) mg/dL Total Bilirubin 0.3 (0.2-1.0) mg/dL AST 64 H (15-37) IU/L ALT 49 (14-63) IU/L Alkaline Phosphatase 118 H (46-116) U/L Total Protein 7.7 (6.4-8.2) g/dL Albumin 3.8 (3.4-5.0) g/dL Globulin 3.9 H (2.0-3.5) g/dL Albumin/Globulin Ratio 1.0 L (1.3-2.8) TSH 3rd Generation 3.19 (0.36-3.74) uIU/mL Urine Color YELLOW Urine Appearance CLEAR Urine pH 6.0 (5.0-8.0) Ur Specific Ro[place]uck <= 1.005 (1.001-1.035) Urine Protein NEGATIVE (NEGATIVE) mg/dL Urine Glucose (UA) NEGATIVE (NEGATIVE) mg/dL Urine Ketones NEGATIVE (NEGATIVE) mg/dL Urine Occult Blood NEGATIVE (NEGATIVE) Urine Nitrite NEGATIVE (NEGATIVE) Urine Bilirubin NEGATIVE (NEGATIVE) Urine Urobilinogen 0.2 (<2.0) EU/dL Ur Leukocyte Esterase NEGATIVE (NEGATIVE) Urine RBC 0-1 (0-2/HPF) Urine WBC 0-1 (0-5/HPF) Ur Epithelial Cells RARE (NONE-FEW) Amorphous Sediment LIGHT (NEGATIVE) Urine Bacteria RARE (NEGATIVE) Urine Opiates Screen (NEGATIVE) Ur Oxycodone Screen (NEGATIVE) Urine Methadone Screen (NEGATIVE) Ur Barbiturates Screen (NEGATIVE) Ur Phencyclidine Scrn (NEGATIVE) Ur Amphetamine Screen (NEGATIVE) U Methamphetamines Scrn (NEGATIVE) U Benzodiazepines Scrn (NEGATIVE) U Cocaine Metab Screen (NEGATIVE) U Marijuana (THC) Screen (NEGATIVE) Ethyl Alcohol 346 mg/dL 11/17/17 Range/Units 21:27 WBC (4.0-11.0) K/uL RBC (4.30-5.90) M/uL Hgb (12.0-16.0) g/dL Hct (36.0-46.0) % MCV (80.0-98.0) fL MCH (27.0-32.0) pg MCHC (31.0-37.0) g/dL RDW Std Deviation (28.0-62.0) fl RDW Coeff of Sudheer (11.0-15.0) % Plt Count (150-400) K/uL MPV (7.40-12.00) fL Neut % (Auto) (48.0-80.0) % Lymph % (Auto) (16.0-40.0) % Tripp % (Auto) (0.0-15.0) % Eos % (Auto) (0.0-7.0) % Baso % (Auto) (0.0-1.5) % Neut # (Auto) (1.4-5.7) K/uL Lymph # (Auto) (0.6-2.4) K/uL Tripp # (Auto) (0.0-0.8) K/uL Eos # (Auto) (0.0-0.7) K/uL Baso # (Auto) (0.0-0.1) K/uL Nucleated RBC % /100WBC Nucleated RBCs # K/uL Sodium (136-145) mmol/L Potassium (3.5-5.1) mmol/L Chloride (98-107) mmol/L Carbon Dioxide (21.0-32.0) mmol/L BUN (7.0-18.0) mg/dL Creatinine (0.6-1.0) mg/dL Est Cr Clr Drug Dosing mL/min Estimated GFR (MDRD) ml/min Glucose (74-106) mg/dL Calcium (8.5-10.1) mg/dL Total Bilirubin (0.2-1.0) mg/dL AST (15-37) IU/L ALT (14-63) IU/L Alkaline Phosphatase (46-116) U/L Total Protein (6.4-8.2) g/dL Albumin (3.4-5.0) g/dL Globulin (2.0-3.5) g/dL Albumin/Globulin Ratio (1.3-2.8) TSH 3rd Generation (0.36-3.74) uIU/mL Urine Color Urine Appearance Urine pH (5.0-8.0) Ur Specific Ro[place] (1.001-1.035) Urine Protein (NEGATIVE) mg/dL Urine Glucose (UA) (NEGATIVE) mg/dL Urine Ketones (NEGATIVE) mg/dL Urine Occult Blood (NEGATIVE) Urine Nitrite (NEGATIVE) Urine Bilirubin (NEGATIVE) Urine Urobilinogen (<2.0) EU/dL Ur Leukocyte Esterase (NEGATIVE) Urine RBC (0-2/HPF) Urine WBC (0-5/HPF) Ur Epithelial Cells (NONE-FEW) Amorphous Sediment (NEGATIVE) Urine Bacteria (NEGATIVE) Urine Opiates Screen NEGATIVE (NEGATIVE) Ur Oxycodone Screen NEGATIVE (NEGATIVE) Urine Methadone Screen NEGATIVE (NEGATIVE) Ur Barbiturates Screen NEGATIVE (NEGATIVE) Ur Phencyclidine Scrn NEGATIVE (NEGATIVE) Ur Amphetamine Screen NEGATIVE (NEGATIVE) U Methamphetamines Scrn NEGATIVE (NEGATIVE) U Benzodiazepines Scrn NEGATIVE (NEGATIVE) U Cocaine Metab Screen NEGATIVE (NEGATIVE) U Marijuana (THC) Screen NEGATIVE (NEGATIVE) Ethyl Alcohol mg/dL Result Diagrams: 11/17/17 19:59 11/18/17 06:43 - Problem List (1) Alcohol withdrawal SNOMED Code(s): 290885069 ICD Code: F10.239 - ALCOHOL DEPENDENCE WITH WITHDRAWAL, UNSPECIFIED Status : Acute Priority: High Current Visit: Yes Qualifiers: Complication of substance-induced condition: uncomplicated Qualified Code(s ): F10.230 - Alcohol dependence with withdrawal, uncomplicated (2) Hypertension SNOMED Code(s): 16815611 ICD Code: I10 - ESSENTIAL (PRIMARY) HYPERTENSION Status: Chronic Priority : Medium Current Visit: Yes Qualifiers: Hypertension type: essential hypertension Qualified Code(s): I10 - Essential (primary) hypertension (3) Hypocalcemia SNOMED Code(s): 0418018 ICD Code: E83.51 - HYPOCALCEMIA Status: Acute Priority: Medium Current Visit: Yes (4) Overweight (BMI 25.0-29.9) SNOMED Code(s): 845745000 ICD Code: E66.3 - OVERWEIGHT Status: Chronic Priority: Medium Current Visit: Yes (5) Hypokalemia SNOMED Code(s): 27535072 ICD Code: E87.6 - HYPOKALEMIA Status: Acute Priority: Medium Current Visit: Yes Problem Details: Resolved (6) Anxiety SNOMED Code(s): 59232050 ICD Code: F41.9 - ANXIETY DISORDER, UNSPECIFIED Status: Chronic Priority : High Current Visit: Yes Problem List Initiated/Reviewed/Updated: Yes Orders Last 24hrs: Active Orders 24 hr Category Date Time Status Admission Status [Patient Status] [ADT] Stat ADT 11/17/17 21:32 Active CIWAA Assessment [RC] Q4H Care 11/17/17 22:00 Active Regular Diet [DIET] Diet 11/18/17 Breakfast Active COMPREHENSIVE METABOLIC PN,CMP [CHEM] Urgent Lab 11/18/17 06:43 Received Folic Acid Med 11/18/17 09:00 Active 1 mg PO DAILY LORazepam [Ativan] Med 11/17/17 23:10 Active See Protocol IVPUSH Q4H PRN Sodium Chloride 0.9% with KCl [Normal Saline with 40 Med 11/18/17 06:30 Active mEq KCl] 1,000 ml IV ASDIRECTED Temazepam [Restoril] Med 11/17/17 22:00 Active 15 mg PO BEDTIME PRN Thiamine [Vitamin B-1] Med 11/18/17 09:00 Active 100 mg PO DAILY Medication Orders Folic Acid (Folic Acid) 1 mg PO DAILY SANDRA Potassium Chloride/Sodium Chloride (Normal Saline With 40 Meq Kcl) 1,000 mls @ 150 mls/hr IV ASDIRECTED SANDRA Lorazepam (Ativan) 0 mg IVPUSH Q4H PRN; Protocol PRN Reason: Withdrawal Symptoms Last Admin: 11/18/17 04:33 Dose: 1 mg Temazepam (Restoril) 15 mg PO BEDTIME PRN PRN Reason: Sleep Thiamine HCl (Vitamin B-1) 100 mg PO DAILY SANDRA Assessment/Plan Comment:: The patient is a 57-year-old lady who had been admitted to inpatient secondary to acute alcohol intoxication with history of alcohol withdrawal symptoms. The patient will be kept on telemetry secondary to her history of withdrawals. She will also be kept on CIAK protocol for alcohol withdrawal. She'll be monitored very closely for signs and symptoms associated with this. I also ordered the patient have thiamine and folate replacement with 100 mg of thiamine and 1 mg of folate on a daily basis. The patient will also be kept hydrated on IV fluids consisting of normal saline at 100 mL per hour. I had a long discussion with the patient with regards to her relapse for her alcohol abuse and the patient does have a plan in place to help maintaining her sobriety. The patient has been encouraged to follow up with family and friends with regards to support for abstinence from alcohol. She does have hypertension and her vital signs will be monitored and I started the patient's home medications and other medications to be added as necessary to control her blood pressure. She does have a history of anxiety and this is likely to be made worse by alcohol withdrawal symptoms and she has additional Ativan ordered if necessary. The patient was also noted to have hypocalcemia and this is been replaced by 1 time dose of calcium gluconate. We'll repeat the patient's laboratory studies in the morning. The patient has been encouraged to ambulate. She should be appropriate for discharge and 2-3 days or sooner if necessary depending upon her withdrawal symptoms.
[2017-11-18 07:10] LABS: CHLORIDE,CL 110 mmol/L (98-107); SODIUM,NA 141 mmol/L (136-145)
[2017-11-18] MEDS ORDERED: Calcium Gluconate 10% 1 GM/10 ML SDV IVPUSH ONE (08:09)
[2017-11-18] MEDS ORDERED: Ondansetron 4 MG Tab.DIS PO PRN (08:46)
[2017-11-18] MEDS: Thiamine 100 MG Tab PO SCH (08:55)
[2017-11-18] MEDS: Hydrochlorothiazide 25 MG Tab PO SCH (08:55)
[2017-11-18] MEDS: Pantoprazole 40 MG Tab.CR PO SCH (08:55)
[2017-11-18] MEDS: Losartan 50 MG Tab PO SCH (08:56)
[2017-11-18] MEDS: Folic Acid 1 MG Tab PO SCH (08:56)
[2017-11-18] MEDS: amLODIPine 5 MG Tab PO SCH (08:56)
[2017-11-18] MEDS: Desvenlafaxine Succinate [Pristiq] 50 MG PO SCH (09:26)
[2017-11-18] MEDS ORDERED: Magnesium Sulfate/Water 2 GM in Premix Bag 1 BAG IV ONE (10:42)
[2017-11-18] MEDS ORDERED: Potassium Chloride 20 MEQ Tab.ER PO ONE (10:43)
[2017-11-18] MEDS: Sodium Chloride 0.9% 1,000 ML IV SCH ×2 (11:11→23:22)
[2017-11-18] MEDS: Nicotine 14 MG/24 Hr Patch TRDERM SCH (17:49)
[2017-11-18] MEDS: traZODone 50 MG Tab PO SCH (21:24)
[2017-11-18] MEDS: Amitriptyline 25 MG Tab PO SCH (21:24)
[2017-11-19 05:53] LABS: CHLORIDE,CL 106 mmol/L (98-107); SODIUM,NA 140 mmol/L (136-145)
[2017-11-19] MEDS: Potassium Chloride 10% 20 MEQ/15 ML Soln 30 ML UD Cup PO SCH ×2 (07:49→11:14)
[2017-11-19] MEDS: Hydrochlorothiazide 25 MG Tab PO SCH (09:12)
[2017-11-19] MEDS: amLODIPine 5 MG Tab PO SCH (09:12)
[2017-11-19] MEDS: Thiamine 100 MG Tab PO SCH (09:13)
[2017-11-19] MEDS: Losartan 50 MG Tab PO SCH (09:13)
[2017-11-19] MEDS: Folic Acid 1 MG Tab PO SCH (09:13)
[2017-11-19] MEDS: Pantoprazole 40 MG Tab.CR PO SCH (09:14)
[2017-11-19] MEDS: Nicotine 14 MG/24 Hr Patch TRDERM SCH (09:14)
[2017-11-19] MEDS: Desvenlafaxine Succinate [Pristiq] 50 MG PO SCH (09:18)
--- NOTE | 2017-11-19 13:48 | PCM.PN ---
<Brandon Sweet - Last Filed: 11/19/17 13:56> - General Info Date of Service: 11/19/17 Subjective Update: Yolanda Sofia is a 57 y/o female with history of alcohol abuse who was admitted for alcoholic intoxication. Patient denies any nausea, vomiting. States her tremors have improved. Of note, it seems that she had a elevated temperature overnight. No signs of infection. Denies cough, dyspnea. No chest pain, abdominal pain, dysuria or diarrhea. - Patient Data Vitals - Most Recent: Last Vital Signs Temp 36.2 C 11/19/17 11:47 Pulse 95 11/19/17 11:47 Resp 19 11/19/17 11:47 BP 139/86 11/19/17 11:47 Pulse Ox 95 11/19/17 11:47 Weight - Most Recent: 68.492 kg I&O - Last 24 Hours: Intake & Output 11/18/17 11/19/17 11/19/17 22:59 06:59 14:59 Intake Total 3199 Output Total 500 Balance 2699 Lab Results Last 24 Hours: Laboratory Results - last 24 hr 11/19/17 Range/Units 04:50 Sodium 140 (136-145) mmol/L Potassium 3.2 L (3.5-5.1) mmol/L Chloride 106 (98-107) mmol/L Carbon Dioxide 26.4 (21.0-32.0) mmol/L BUN 6 L (7.0-18.0) mg/dL Creatinine 0.7 (0.6-1.0) mg/dL Est Cr Clr Drug Dosing 75.09 mL/min Estimated GFR (MDRD) > 60.0 ml/min Glucose 97 (74-106) mg/dL Calcium 8.3 L (8.5-10.1) mg/dL Magnesium 1.9 (1.8-2.4) mg/dL Total Bilirubin 0.9 (0.2-1.0) mg/dL AST 59 H (15-37) IU/L ALT 43 (14-63) IU/L Alkaline Phosphatase 104 (46-116) U/L Total Protein 6.4 (6.4-8.2) g/dL Albumin 3.1 L (3.4-5.0) g/dL Globulin 3.3 (2.0-3.5) g/dL Albumin/Globulin Ratio 0.9 L (1.3-2.8) Kirit Results Last 24 Hours: Microbiology 11/18/17 10:07 Aerobic Blood Culture - Preliminary Blood - Venous - Lab Draw NO GROWTH AFTER 1 DAY Anaerobic Blood Culture - Preliminary NO GROWTH AFTER 1 DAY 11/18/17 10:05 Aerobic Blood Culture - Preliminary Blood - Venous NO GROWTH AFTER 1 DAY Anaerobic Blood Culture - Preliminary NO GROWTH AFTER 1 DAY 11/18/17 09:20 Urine Culture - Final Urine, Bladder MIXED JARRELL >100,000 CFU/ML Med Orders - Current: Current Medications Amitriptyline HCl (Elavil) 50 mg PO BEDTIME [facility] Last Admin: 11/18/17 21:24 Dose: 50 mg Amlodipine Besylate (Norvasc) 5 mg PO DAILY [facility] Last Admin: 11/19/17 09:12 Dose: 5 mg Folic Acid (Folic Acid) 1 mg PO DAILY [facility] Last Admin: 11/19/17 09:13 Dose: 1 mg Hydrochlorothiazide (Hydrochlorothiazide) 25 mg PO DAILY [facility] Last Admin: 11/19/17 09:12 Dose: 25 mg Sodium Chloride (Normal Saline) 1,000 mls @ 100 mls/hr IV ASDIRECTED [facility] Last Admin: 11/18/17 23:22 Dose: 100 mls/hr Lorazepam (Ativan) 0 mg IVPUSH Q4H PRN; Protocol PRN Reason: Withdrawal Symptoms Last Admin: 11/18/17 17:55 Dose: 1 mg Losartan Potassium (Cozaar) 100 mg PO DAILY [facility] Last Admin: 11/19/17 09:13 Dose: 100 mg Nicotine (Habitrol) 14 mg TRDERM DAILY [facility] Last Admin: 11/19/17 09:14 Dose: Not Given Ondansetron HCl (Zofran Odt) 4 mg PO Q6H PRN PRN Reason: Nausea/Vomiting Pantoprazole Sodium (Protonix) 40 mg PO DAILY [facility] Last Admin: 11/19/17 09:14 Dose: 40 mg Desvenlafaxine Succinate [Pristiq] 50 Mg 1 each PO DAILY [facility] Last Admin: 11/19/17 09:18 Dose: 1 each Temazepam (Restoril) 15 mg PO BEDTIME PRN PRN Reason: Sleep Thiamine HCl (Vitamin B-1) 100 mg PO DAILY [facility] Last Admin: 11/19/17 09:13 Dose: 100 mg Trazodone HCl (Trazodone) 100 mg PO BEDTIME [facility] Last Admin: 11/18/17 21:24 Dose: 100 mg Discontinued Medications Calcium Gluconate (Calcium Gluconate) 1 gm IVPUSH ONETIME ONE Stop: 11/18/17 08:10 Last Admin: 11/18/17 08:56 Dose: 1 gm Multivitamins/Minerals 10 ml/Thiamine HCl 100 mg/ Folic Acid 1 mg/ Sodium Chloride 1,011.2 mls @ 250 mls/hr IV ONETIME ONE Stop: 11/17/17 23:49 Last Admin: 11/17/17 20:08 Dose: 250 mls/hr Sodium Chloride (Normal Saline) 1,000 mls @ 999 mls/hr IV STAT ONE Stop: 11/17/17 20:48 Last Admin: 11/17/17 21:14 Dose: 999 mls/hr Sodium Chloride (Normal Saline) 1,000 mls @ 100 mls/hr IV ASDIRECTED [facility] Last Admin: 11/17/17 23:17 Dose: 100 mls/hr Potassium Chloride/Sodium Chloride (Normal Saline With 40 Meq Kcl) 1,000 mls @ 150 mls/hr IV ASDIRECTED [facility] Magnesium Sulfate 2 gm/ Premix 50 mls @ 25 mls/hr IV ONETIME ONE Stop: 11/18/17 12:41 Last Admin: 11/18/17 11:10 Dose: 25 mls/hr Lorazepam (Ativan) 1 mg IVPUSH ONETIME ONE Stop: 11/17/17 19:48 Last Admin: 11/17/17 20:09 Dose: 1 mg Ondansetron HCl (Zofran) 4 mg IVPUSH ONETIME ONE Stop: 11/17/17 19:48 Last Admin: 11/17/17 20:09 Dose: 4 mg Ondansetron HCl (Zofran Odt) Confirm Administered Dose 4 mg .ROUTE .STK-MED ONE Stop: 11/17/17 20:18 Last Admin: 11/17/17 20:22 Dose: Not Given Ondansetron HCl (Zofran Odt) 4 mg PO ONETIME ONE Stop: 11/17/17 20:21 Last Admin: 11/17/17 20:22 Dose: 4 mg Potassium Chloride (Klor-Con M20) 40 meq PO ONETIME ONE Stop: 11/18/17 10:44 Last Admin: 11/18/17 11:12 Dose: 40 meq Potassium Chloride (Potassium Chloride) 40 meq PO Q4H [facility] Stop: 11/19/17 11:01 Last Admin: 11/19/17 11:14 Dose: 40 meq - Exam General: Alert, Oriented, Cooperative, No Acute Distress HEENT: Pupils Equal, Pupils Reactive Lungs: Clear to Auscultation, Normal Respiratory Effort Cardiovascular: Regular Rate, Regular Rhythm, No Murmurs GI/Abdominal Exam: Normal Bowel Sounds, Soft, Non-Tender, No Organomegaly, No Distention Extremities: Normal Inspection, No Pedal Edema Skin: Warm, Dry - Problem List Review Problem List Initiated/Reviewed/Updated: Yes - My Orders Last 24 Hours: My Active Orders 11/18/17 14:30 Nicotine [Habitrol] 14 mg TRDERM DAILY 11/20/17 05:11 CBC WITH AUTO DIFF [HEME] AM CMP [COMPREHENSIVE METABOLIC PN,CMP] [CHEM] AM COMPREHENSIVE METABOLIC PN,CMP [CHEM] AM - Plan Plan:: 1. Alcohol abuse, improved. Will continue to monitor with CIWA and lorazepam PRN for withdrawal symptoms. Will provide patient with outpatient resources to help with alcohol cessation at time of discharge. 2. Hypertension. Continue with current medications which include: amlodipine and losartan. 3. Hypokalemia. Replaced with KCl 40 mEq PO for two doses. Disposition: plan to DC tomorrow. <Bryant Armstrong - Last Filed: 11/19/17 17:02> - General Info Admission Dx/Problem (Free Text): I reviewed and examined the patient independently of medical records director. The patient is doing better today. She is still in a danger window for concerns for alcohol withdrawal. We'll continue the patient on the CIWA protocol and monitor for signs of impending withdrawal. The patient has been encouraged to ambulate. I agree with the assessment and plan of care from the medical records director. Please see orders. - Patient Data Vitals - Most Recent: Last Vital Signs Temp 36.2 C 11/19/17 11:47 Pulse 95 11/19/17 11:47 Resp 19 11/19/17 11:47 BP 139/86 11/19/17 11:47 Pulse Ox 95 11/19/17 11:47 I&O - Last 24 Hours: Intake & Output 11/19/17 11/19/17 11/19/17 06:59 14:59 22:59 Intake Total 3199 Output Total 500 Balance 2699 Lab Results Last 24 Hours: Laboratory Results - last 24 hr 11/19/17 Range/Units 04:50 Sodium 140 (136-145) mmol/L Potassium 3.2 L (3.5-5.1) mmol/L Chloride 106 (98-107) mmol/L Carbon Dioxide 26.4 (21.0-32.0) mmol/L BUN 6 L (7.0-18.0) mg/dL Creatinine 0.7 (0.6-1.0) mg/dL Est Cr Clr Drug Dosing 75.09 mL/min Estimated GFR (MDRD) > 60.0 ml/min Glucose 97 (74-106) mg/dL Calcium 8.3 L (8.5-10.1) mg/dL Magnesium 1.9 (1.8-2.4) mg/dL Total Bilirubin 0.9 (0.2-1.0) mg/dL AST 59 H (15-37) IU/L ALT 43 (14-63) IU/L Alkaline Phosphatase 104 (46-116) U/L Total Protein 6.4 (6.4-8.2) g/dL Albumin 3.1 L (3.4-5.0) g/dL Globulin 3.3 (2.0-3.5) g/dL Albumin/Globulin Ratio 0.9 L (1.3-2.8) Kirit Results Last 24 Hours: Microbiology 11/18/17 10:07 Aerobic Blood Culture - Preliminary Blood - Venous - Lab Draw NO GROWTH AFTER 1 DAY Anaerobic Blood Culture - Preliminary NO GROWTH AFTER 1 DAY 11/18/17 10:05 Aerobic Blood Culture - Preliminary Blood - Venous NO GROWTH AFTER 1 DAY Anaerobic Blood Culture - Preliminary NO GROWTH AFTER 1 DAY 11/18/17 09:20 Urine Culture - Final Urine, Bladder MIXED JARRELL >100,000 CFU/ML Med Orders - Current: Current Medications Amitriptyline HCl (Elavil) 50 mg PO BEDTIME [facility] Last Admin: 11/18/17 21:24 Dose: 50 mg Amlodipine Besylate (Norvasc) 5 mg PO DAILY [facility] Last Admin: 11/19/17 09:12 Dose: 5 mg Folic Acid (Folic Acid) 1 mg PO DAILY [facility] Last Admin: 11/19/17 09:13 Dose: 1 mg Hydrochlorothiazide (Hydrochlorothiazide) 25 mg PO DAILY [facility] Last Admin: 11/19/17 09:12 Dose: 25 mg Sodium Chloride (Normal Saline) 1,000 mls @ 100 mls/hr IV ASDIRECTED [facility] Last Admin: 11/18/17 23:22 Dose: 100 mls/hr Lorazepam (Ativan) 0 mg IVPUSH Q4H PRN; Protocol PRN Reason: Withdrawal Symptoms Last Admin: 11/18/17 17:55 Dose: 1 mg Losartan Potassium (Cozaar) 100 mg PO DAILY [facility] Last Admin: 11/19/17 09:13 Dose: 100 mg Nicotine (Habitrol) 14 mg TRDERM DAILY [facility] Last Admin: 11/19/17 09:14 Dose: Not Given Ondansetron HCl (Zofran Odt) 4 mg PO Q6H PRN PRN Reason: Nausea/Vomiting Pantoprazole Sodium (Protonix) 40 mg PO DAILY [facility] Last Admin: 11/19/17 09:14 Dose: 40 mg Desvenlafaxine Succinate [Pristiq] 50 Mg 1 each PO DAILY [facility] Last Admin: 11/19/17 09:18 Dose: 1 each Temazepam (Restoril) 15 mg PO BEDTIME PRN PRN Reason: Sleep Thiamine HCl (Vitamin B-1) 100 mg PO DAILY [facility] Last Admin: 11/19/17 09:13 Dose: 100 mg Trazodone HCl (Trazodone) 100 mg PO BEDTIME [facility] Last Admin: 11/18/17 21:24 Dose: 100 mg Discontinued Medications Calcium Gluconate (Calcium Gluconate) 1 gm IVPUSH ONETIME ONE Stop: 11/18/17 08:10 Last Admin: 11/18/17 08:56 Dose: 1 gm Multivitamins/Minerals 10 ml/Thiamine HCl 100 mg/ Folic Acid 1 mg/ Sodium Chloride 1,011.2 mls @ 250 mls/hr IV ONETIME ONE Stop: 11/17/17 23:49 Last Admin: 11/17/17 20:08 Dose: 250 mls/hr Sodium Chloride (Normal Saline) 1,000 mls @ 999 mls/hr IV STAT ONE Stop: 11/17/17 20:48 Last Admin: 11/17/17 21:14 Dose: 999 mls/hr Sodium Chloride (Normal Saline) 1,000 mls @ 100 mls/hr IV ASDIRECTED [facility] Last Admin: 11/17/17 23:17 Dose: 100 mls/hr Potassium Chloride/Sodium Chloride (Normal Saline With 40 Meq Kcl) 1,000 mls @ 150 mls/hr IV ASDIRECTED [facility] Magnesium Sulfate 2 gm/ Premix 50 mls @ 25 mls/hr IV ONETIME ONE Stop: 11/18/17 12:41 Last Admin: 11/18/17 11:10 Dose: 25 mls/hr Lorazepam (Ativan) 1 mg IVPUSH ONETIME ONE Stop: 11/17/17 19:48 Last Admin: 11/17/17 20:09 Dose: 1 mg Ondansetron HCl (Zofran) 4 mg IVPUSH ONETIME ONE Stop: 11/17/17 19:48 Last Admin: 11/17/17 20:09 Dose: 4 mg Ondansetron HCl (Zofran Odt) Confirm Administered Dose 4 mg .ROUTE .STK-MED ONE Stop: 11/17/17 20:18 Last Admin: 11/17/17 20:22 Dose: Not Given Ondansetron HCl (Zofran Odt) 4 mg PO ONETIME ONE Stop: 11/17/17 20:21 Last Admin: 11/17/17 20:22 Dose: 4 mg Potassium Chloride (Klor-Con M20) 40 meq PO ONETIME ONE Stop: 11/18/17 10:44 Last Admin: 11/18/17 11:12 Dose: 40 meq Potassium Chloride (Potassium Chloride) 40 meq PO Q4H [facility] Stop: 11/19/17 11:01 Last Admin: 11/19/17 11:14 Dose: 40 meq - Problem List & Annotations (1) Alcohol withdrawal SNOMED Code(s): 217126957 Code(s): F10.239 - ALCOHOL DEPENDENCE WITH WITHDRAWAL, UNSPECIFIED Status: Acute Priority: High Current Visit: Yes Qualifiers: Complication of substance-induced condition: uncomplicated Qualified Code(s ): F10.230 - Alcohol dependence with withdrawal, uncomplicated (2) Hypertension SNOMED Code(s): 19167259 Code(s): I10 - ESSENTIAL (PRIMARY) HYPERTENSION Status: Chronic Priority : Medium Current Visit: Yes Qualifiers: Hypertension type: essential hypertension Qualified Code(s): I10 - Essential (primary) hypertension (3) Hypocalcemia SNOMED Code(s): 0923266 Code(s): E83.51 - HYPOCALCEMIA Status: Acute Priority: Medium Current Visit: Yes (4) Overweight (BMI 25.0-29.9) SNOMED Code(s): 175347894 Code(s): E66.3 - OVERWEIGHT Status: Chronic Priority: Medium Current Visit: Yes (5) Hypokalemia SNOMED Code(s): 32732515 Code(s): E87.6 - HYPOKALEMIA Status: Acute Priority: Medium Current Visit: Yes Annotation/Comment:: Resolved (6) Anxiety SNOMED Code(s): 30882318 Code(s): F41.9 - ANXIETY DISORDER, UNSPECIFIED Status: Chronic Priority: High Current Visit: Yes - My Orders Last 24 Hours: My Active Orders 11/18/17 21:00 Amitriptyline [Elavil] 50 mg PO BEDTIME traZODone 100 mg PO BEDTIME
[2017-11-19] MEDS ORDERED: LORazepam 1 MG Tab PO ONE (18:32)
[2017-11-19] MEDS: traZODone 50 MG Tab PO SCH (20:56)
[2017-11-19] MEDS: Amitriptyline 25 MG Tab PO SCH (20:56)
[2017-11-20 05:51] LABS: CHLORIDE,CL 104 mmol/L (98-107); SODIUM,NA 140 mmol/L (136-145)
[2017-11-20] MEDS: Losartan 50 MG Tab PO SCH (09:16)
[2017-11-20] MEDS: amLODIPine 5 MG Tab PO SCH (09:16)
[2017-11-20] MEDS: Hydrochlorothiazide 25 MG Tab PO SCH (09:16)
[2017-11-20 09:17] VITALS: BP 133/83
[2017-11-20] MEDS: Pantoprazole 40 MG Tab.CR PO SCH (09:17)
[2017-11-20] MEDS: Thiamine 100 MG Tab PO SCH (09:17)
[2017-11-20] MEDS: Folic Acid 1 MG Tab PO SCH (09:17)
[2017-11-20] MEDS: Nicotine 14 MG/24 Hr Patch TRDERM SCH (09:17)
[2017-11-20] MEDS: Desvenlafaxine Succinate [Pristiq] 50 MG PO SCH (09:18)
--- NOTE | 2017-11-20 10:53 | PCM.DCSUM1 ---
<Ebony RoseandaBrandon - Last Filed: 11/20/17 11:05> Discharge Summary - Hospital Course Free Text/Narrative:: Admission date: 11/18/17 Discharge date: 11/20/17 Admission diagnosis: 1. Alcohol withdrawal 2. Alcohol abuse 3. Hypokalemia 4. Hypertension Discharge diagnosis: 1. Alcohol abuse 2. Alcohol withdrawal, resolved 3. Hypertension, controlled 4. Hypokalemia, resolved Hospital course: Yolanda Sofia is a 57 y/o female with a history of alcohol abuse who presented to the ER acutely intoxicated with alcohol. Her ethyl alcohol level was in the 300's. She was admitted for acute alcohol intoxication and withdrawal symptoms. She was hydrated with NS IV fluids. Administered folate and thiamine. She was started on CIWA protocol and her symptoms were controlled with Ativan. At time of discharge, the patient denied any tremors or withdrawal symptoms. She was tolerating PO intake. She was advised to abstain from alcohol and any mood altering substances. Provided her with outpatient resources to help her abstain from alcohol. Follow-up: Please, follow-up with your primary care provider within 2 weeks. - Discharge Data Discharge Date: 11/20/17 Discharge Disposition: Home, Self-Care 01 Condition: Good - Patient Instructions Diet: Regular Diet as Tolerated, No Alcoholic Beverages Activity: As Tolerated Notify Provider of: Fever, Increased Pain, Swelling and Redness, Nausea and/or Vomiting - Discharge Plan *PRESCRIPTION DRUG MONITORING PROGRAM REVIEWED*: Not Applicable *COPY OF PRESCRIPTION DRUG MONITORING REPORT IN PATIENT DARREL: Not Applicable Home Medications: Home Meds Losartan [Cozaar] 100 mg PO DAILY 01/11/15 [History] Hydrochlorothiazide 25 mg PO DAILY 04/26/16 [History] traZODone HCl [Trazodone HCl] 2 tab PO BEDTIME 04/26/16 [History] Desvenlafaxine Succinate [Pristiq ER] 50 mg PO DAILY 05/26/17 [History] Amitriptyline HCl 50 mg PO BEDTIME 11/17/17 [History] Pantoprazole [ProTONIX] 40 mg PO DAILY 11/17/17 [History] amLODIPine Besylate [Amlodipine Besylate] 5 mg PO DAILY 11/17/17 [History] Patient Handouts: Alcohol Use Disorder, Hypertension, [id number] Referrals: [facility] [Outside] Crystal Solorzano NP [Ordering Only Provider] - 11/27/17 9:45 am - Discharge Summary/Plan Comment DC Time >30 min.: No - Patient Data Vitals - Most Recent: Last Vital Signs Temp 36.4 C 11/20/17 09:00 Pulse 99 11/20/17 09:00 Resp 18 11/20/17 09:00 BP 133/83 11/20/17 09:16 Pulse Ox 96 11/20/17 09:00 Weight - Most Recent: 68.492 kg I&O - Last 24 hours: Intake & Output 11/19/17 11/20/17 11/20/17 22:59 06:59 14:59 Intake Total 1700 500 Output Total 0 Balance 1700 500 Lab Results - Last 24 hrs: Laboratory Results - last 24 hr 11/20/17 Range/Units 05:05 Sodium 140 (136-145) mmol/L Potassium 3.5 (3.5-5.1) mmol/L Chloride 104 (98-107) mmol/L Carbon Dioxide 27.9 (21.0-32.0) mmol/L BUN 6 L (7.0-18.0) mg/dL Creatinine 0.7 (0.6-1.0) mg/dL Est Cr Clr Drug Dosing 75.09 mL/min Estimated GFR (MDRD) > 60.0 ml/min Glucose 107 H (74-106) mg/dL Calcium 9.0 (8.5-10.1) mg/dL Total Bilirubin 0.7 (0.2-1.0) mg/dL AST 60 H (15-37) IU/L ALT 45 (14-63) IU/L Alkaline Phosphatase 107 (46-116) U/L Total Protein 7.1 (6.4-8.2) g/dL Albumin 3.4 (3.4-5.0) g/dL Globulin 3.7 H (2.0-3.5) g/dL Albumin/Globulin Ratio 0.9 L (1.3-2.8) ZULMA Results - Last 24 hrs: Microbiology 11/18/17 10:07 Aerobic Blood Culture - Preliminary Blood - Venous - Lab Draw NO GROWTH AFTER 2 DAYS Anaerobic Blood Culture - Preliminary NO GROWTH AFTER 2 DAYS 11/18/17 10:05 Aerobic Blood Culture - Preliminary Blood - Venous NO GROWTH AFTER 2 DAYS Anaerobic Blood Culture - Preliminary NO GROWTH AFTER 2 DAYS 11/18/17 09:20 Urine Culture - Final Urine, Bladder MIXED JARRELL >100,000 CFU/ML Med Orders - Current: Current Medications Amitriptyline HCl (Elavil) 50 mg PO BEDTIME [facility] Last Admin: 11/19/17 20:56 Dose: 50 mg Amlodipine Besylate (Norvasc) 5 mg PO DAILY [facility] Last Admin: 11/20/17 09:16 Dose: 5 mg Folic Acid (Folic Acid) 1 mg PO DAILY [facility] Last Admin: 11/20/17 09:17 Dose: 1 mg Hydrochlorothiazide (Hydrochlorothiazide) 25 mg PO DAILY [facility] Last Admin: 11/20/17 09:16 Dose: 25 mg Lorazepam (Ativan) 0 mg IVPUSH Q4H PRN; Protocol PRN Reason: Withdrawal Symptoms Last Admin: 11/18/17 17:55 Dose: 1 mg Losartan Potassium (Cozaar) 100 mg PO DAILY [facility] Last Admin: 11/20/17 09:16 Dose: 100 mg Nicotine (Habitrol) 14 mg TRDERM DAILY [facility] Last Admin: 11/20/17 09:17 Dose: Not Given Ondansetron HCl (Zofran Odt) 4 mg PO Q6H PRN PRN Reason: Nausea/Vomiting Pantoprazole Sodium (Protonix) 40 mg PO DAILY [facility] Last Admin: 11/20/17 09:17 Dose: 40 mg Desvenlafaxine Succinate [Pristiq] 50 Mg 1 each PO DAILY [facility] Last Admin: 11/20/17 09:18 Dose: 1 each Temazepam (Restoril) 15 mg PO BEDTIME PRN PRN Reason: Sleep Thiamine HCl (Vitamin B-1) 100 mg PO DAILY [facility] Last Admin: 11/20/17 09:17 Dose: 100 mg Trazodone HCl (Trazodone) 100 mg PO BEDTIME [facility] Last Admin: 11/19/17 20:56 Dose: 100 mg Discontinued Medications Calcium Gluconate (Calcium Gluconate) 1 gm IVPUSH ONETIME ONE Stop: 11/18/17 08:10 Last Admin: 11/18/17 08:56 Dose: 1 gm Multivitamins/Minerals 10 ml/Thiamine HCl 100 mg/ Folic Acid 1 mg/ Sodium Chloride 1,011.2 mls @ 250 mls/hr IV ONETIME ONE Stop: 11/17/17 23:49 Last Admin: 11/17/17 20:08 Dose: 250 mls/hr Sodium Chloride (Normal Saline) 1,000 mls @ 999 mls/hr IV STAT ONE Stop: 11/17/17 20:48 Last Admin: 11/17/17 21:14 Dose: 999 mls/hr Sodium Chloride (Normal Saline) 1,000 mls @ 100 mls/hr IV ASDIRECTED SANDRA Last Admin: 11/17/17 23:17 Dose: 100 mls/hr Potassium Chloride/Sodium Chloride (Normal Saline With 40 Meq Kcl) 1,000 mls @ 150 mls/hr IV ASDIRECTED SANDRA Magnesium Sulfate 2 gm/ Premix 50 mls @ 25 mls/hr IV ONETIME ONE Stop: 11/18/17 12:41 Last Admin: 11/18/17 11:10 Dose: 25 mls/hr Sodium Chloride (Normal Saline) 1,000 mls @ 100 mls/hr IV ASDIRECTED [facility] Last Admin: 11/18/17 23:22 Dose: 100 mls/hr Influenza Virus Vaccine (Pharmacy To Dose - Influenza Vaccine) 1 each IM ONETIME ONE Stop: 11/20/17 09:33 Lorazepam (Ativan) 1 mg IVPUSH ONETIME ONE Stop: 11/17/17 19:48 Last Admin: 11/17/17 20:09 Dose: 1 mg Lorazepam (Ativan) 1 mg PO ONETIME ONE Stop: 11/19/17 18:33 Last Admin: 11/19/17 18:41 Dose: 1 mg Ondansetron HCl (Zofran) 4 mg IVPUSH ONETIME ONE Stop: 11/17/17 19:48 Last Admin: 11/17/17 20:09 Dose: 4 mg Ondansetron HCl (Zofran Odt) Confirm Administered Dose 4 mg .ROUTE .STK-MED ONE Stop: 11/17/17 20:18 Last Admin: 11/17/17 20:22 Dose: Not Given Ondansetron HCl (Zofran Odt) 4 mg PO ONETIME ONE Stop: 11/17/17 20:21 Last Admin: 11/17/17 20:22 Dose: 4 mg Potassium Chloride (Klor-Con M20) 40 meq PO ONETIME ONE Stop: 11/18/17 10:44 Last Admin: 11/18/17 11:12 Dose: 40 meq Potassium Chloride (Potassium Chloride) 40 meq PO Q4H SANDRA Stop: 11/19/17 11:01 Last Admin: 11/19/17 11:14 Dose: 40 meq <Bryant Armstrong - Last Filed: 11/21/17 09:24> Discharge Summary - Hospital Course HPI Initial Comments: The patient was seen and examined independently of medical videographer. The patient is a 57-year-old lady who had been admitted heavily intoxicated with a history of alcohol withdrawal symptoms. The patient had a blood alcohol level of 0.346. The patient was admitted with IV fluid support, thiamine and folate and monitoring for signs and symptoms of withdrawal. The patient did not exhibit any of the symptoms prior to discharge. The patient also had been drinking heavily week prior to admission after 2 years of sobriety. The patient had been given resources to help maintain sobriety. The patient has been advised to abstain from alcohol. The patient had been recommended to follow up with her primary care physician. I agree with the medical residents assessment and plan of care. Please see orders. - Discharge Diagnosis/Problem(s) (1) Alcohol withdrawal SNOMED Code(s): 087281363 ICD Code: F10.239 - ALCOHOL DEPENDENCE WITH WITHDRAWAL, UNSPECIFIED Status : Acute Priority: High Qualifiers: Complication of substance-induced condition: uncomplicated Qualified Code(s ): F10.230 - Alcohol dependence with withdrawal, uncomplicated (2) Hypertension SNOMED Code(s): 95661732 ICD Code: I10 - ESSENTIAL (PRIMARY) HYPERTENSION Status: Chronic Priority : Medium Qualifiers: Hypertension type: essential hypertension Qualified Code(s): I10 - Essential (primary) hypertension (3) Hypocalcemia SNOMED Code(s): 9012332 ICD Code: E83.51 - HYPOCALCEMIA Status: Acute Priority: Medium (4) Overweight (BMI 25.0-29.9) SNOMED Code(s): 093336427 ICD Code: E66.3 - OVERWEIGHT Status: Chronic Priority: Medium (5) Hypokalemia SNOMED Code(s): 53438195 ICD Code: E87.6 - HYPOKALEMIA Status: Acute Priority: Medium Problem Details: Resolved (6) Anxiety SNOMED Code(s): 49437309 ICD Code: F41.9 - ANXIETY DISORDER, UNSPECIFIED Status: Chronic Priority : High - Patient Data Vitals - Most Recent: Last Vital Signs Temp 36.4 C 11/20/17 09:00 Pulse 99 11/20/17 09:00 Resp 18 11/20/17 09:00 BP 133/83 11/20/17 09:16 Pulse Ox 96 11/20/17 09:00 ZULMA Results - Last 24 hrs: Microbiology 11/18/17 10:07 Aerobic Blood Culture - Preliminary Blood - Venous - Lab Draw NO GROWTH AFTER 2 DAYS Anaerobic Blood Culture - Preliminary NO GROWTH AFTER 2 DAYS 11/18/17 10:05 Aerobic Blood Culture - Preliminary Blood - Venous NO GROWTH AFTER 2 DAYS Anaerobic Blood Culture - Preliminary NO GROWTH AFTER 2 DAYS Med Orders - Current: Current Medications Discontinued Medications Amitriptyline HCl (Elavil) 50 mg PO BEDTIME [facility] Last Admin: 11/19/17 20:56 Dose: 50 mg Amlodipine Besylate (Norvasc) 5 mg PO DAILY [facility] Last Admin: 11/20/17 09:16 Dose: 5 mg Calcium Gluconate (Calcium Gluconate) 1 gm IVPUSH ONETIME ONE Stop: 11/18/17 08:10 Last Admin: 11/18/17 08:56 Dose: 1 gm Folic Acid (Folic Acid) 1 mg PO DAILY [facility] Last Admin: 11/20/17 09:17 Dose: 1 mg Hydrochlorothiazide (Hydrochlorothiazide) 25 mg PO DAILY [facility] Last Admin: 11/20/17 09:16 Dose: 25 mg Multivitamins/Minerals 10 ml/Thiamine HCl 100 mg/ Folic Acid 1 mg/ Sodium Chloride 1,011.2 mls @ 250 mls/hr IV ONETIME ONE Stop: 11/17/17 23:49 Last Admin: 11/17/17 20:08 Dose: 250 mls/hr Sodium Chloride (Normal Saline) 1,000 mls @ 999 mls/hr IV STAT ONE Stop: 11/17/17 20:48 Last Admin: 11/17/17 21:14 Dose: 999 mls/hr Sodium Chloride (Normal Saline) 1,000 mls @ 100 mls/hr IV ASDIRECTED [facility] Last Admin: 11/17/17 23:17 Dose: 100 mls/hr Potassium Chloride/Sodium Chloride (Normal Saline With 40 Meq Kcl) 1,000 mls @ 150 mls/hr IV ASDIRECTED [facility] Magnesium Sulfate 2 gm/ Premix 50 mls @ 25 mls/hr IV ONETIME ONE Stop: 11/18/17 12:41 Last Admin: 11/18/17 11:10 Dose: 25 mls/hr Sodium Chloride (Normal Saline) 1,000 mls @ 100 mls/hr IV ASDIRECTED [facility] Last Admin: 11/18/17 23:22 Dose: 100 mls/hr Influenza Virus Vaccine (Pharmacy To Dose - Influenza Vaccine) 1 each IM ONETIME ONE Stop: 11/20/17 09:33 Last Admin: 11/20/17 11:07 Dose: Not Given Lorazepam (Ativan) 1 mg IVPUSH ONETIME ONE Stop: 11/17/17 19:48 Last Admin: 11/17/17 20:09 Dose: 1 mg Lorazepam (Ativan) 0 mg IVPUSH Q4H PRN; Protocol PRN Reason: Withdrawal Symptoms Last Admin: 11/18/17 17:55 Dose: 1 mg Lorazepam (Ativan) 1 mg PO ONETIME ONE Stop: 11/19/17 18:33 Last Admin: 11/19/17 18:41 Dose: 1 mg Losartan Potassium (Cozaar) 100 mg PO DAILY [facility] Last Admin: 11/20/17 09:16 Dose: 100 mg Nicotine (Habitrol) 14 mg TRDERM DAILY [facility] Last Admin: 11/20/17 09:17 Dose: Not Given Ondansetron HCl (Zofran) 4 mg IVPUSH ONETIME ONE Stop: 11/17/17 19:48 Last Admin: 11/17/17 20:09 Dose: 4 mg Ondansetron HCl (Zofran Odt) Confirm Administered Dose 4 mg .ROUTE .STK-MED ONE Stop: 11/17/17 20:18 Last Admin: 11/17/17 20:22 Dose: Not Given Ondansetron HCl (Zofran Odt) 4 mg PO ONETIME ONE Stop: 11/17/17 20:21 Last Admin: 11/17/17 20:22 Dose: 4 mg Ondansetron HCl (Zofran Odt) 4 mg PO Q6H PRN PRN Reason: Nausea/Vomiting Pantoprazole Sodium (Protonix) 40 mg PO DAILY [facility] Last Admin: 11/20/17 09:17 Dose: 40 mg Desvenlafaxine Succinate [Pristiq] 50 Mg 1 each PO DAILY [facility] Last Admin: 11/20/17 09:18 Dose: 1 each Potassium Chloride (Klor-Con M20) 40 meq PO ONETIME ONE Stop: 11/18/17 10:44 Last Admin: 11/18/17 11:12 Dose: 40 meq Potassium Chloride (Potassium Chloride) 40 meq PO Q4H SANDRA Stop: 11/19/17 11:01 Last Admin: 11/19/17 11:14 Dose: 40 meq Temazepam (Restoril) 15 mg PO BEDTIME PRN PRN Reason: Sleep Thiamine HCl (Vitamin B-1) 100 mg PO DAILY [facility] Last Admin: 11/20/17 09:17 Dose: 100 mg Trazodone HCl (Trazodone) 100 mg PO BEDTIME [facility] Last Admin: 11/19/17 20:56 Dose: 100 mg
== END 2017-11-20 11:50 | disposition home or self-care (01) | DRG 897 ==
LOC: MW.ED 19:17 → MW.MS 21:32 → OBSVTOIN 11-18 10:21 → MW.MS 11-18 11:36
PROVIDERS: ADMIT Internal Medicine; ATTEND Internal Medicine
DX: F10.239 Alcohol dependence with withdrawal, unspecified (principal); F10.229 Alcohol dependence with intoxication, unspecified; Y90.8 Blood alcohol level of 240 mg/100 ml or more; E83.51 Hypocalcemia; E87.6 Hypokalemia; I10 Essential (primary) hypertension; K21.9 Gastro-esophageal reflux disease without esophagitis; F41.9 Anxiety disorder, unspecified; E66.3 Overweight; Z68.25 Body mass index [BMI] 25.0-25.9, adult; F32.9 Major depressive disorder, single episode, unspecified; F17.210 Nicotine dependence, cigarettes, uncomplicated; H54.7 Unspecified visual loss; K59.09 Other constipation; Z88.8 Allergy status to other drugs, medicaments and biological substances; Z91.011 Allergy to milk products; Z79.899 Other long term (current) drug therapy
CPT/HCPCS: 36410; 36415; 80053; 80305-QW; 81001; 83735; 84443; 85025; 87040; 87086; 90686; 96361; 96365; 96375; 96376; 99284-25; A9270-GY; G0008; G0378; G0480; J0610; J2060; J2405; J3411; J3475; J7040

== ENCOUNTER 2017-11-30 14:58 | Emergency (ER) | payer MEDICAID ==
[2017-11-30] MEDS ORDERED: MVI, Adult with Vitamin K 10 ML, Thiamine 100 MG, Folic Acid 1 MG in Sodium Chloride 0.... IV ONE ×4 (15:20)
[2017-11-30] MEDS ORDERED: Sodium Chloride 0.9% 10 ML Syringe FLUSH PRN (15:24)
[2017-11-30] MEDS ORDERED: Sodium Chloride 0.9% 2.5 ML Syringe FLUSH PRN (15:24)
[2017-11-30] MEDS ORDERED: hydrOXYzine Pamoate 25 MG Cap PO ONE (15:24)
[2017-11-30] MEDS ORDERED: Ondansetron 4 MG/2 ML SDV IVPUSH ONE (15:30)
--- NOTE | 2017-11-30 16:59 | EDM.PDOCBH ---
ED HPI GENERAL MEDICAL PROBLEM - General Chief Complaint: Behavioral/Psych Stated Complaint: SPOKE TO NURSE Time Seen by Provider: 11/30/17 15:13 Source of Information: Reports: Patient History Limitations: Reports: No Limitations, Intoxication - History of Present Illness INITIAL COMMENTS - FREE TEXT/NARRATIVE: History of present illness: []Patient is a chronic alcoholic and was admitted [address] Armstrong for "detox". She continues to drink and was brought in by her daughter for help. Patient states she now wants to quit drinking. She denies being suicidal or homicidal. She has not eaten a regular meal in quite some time and states she's been drinking only alcohol. Patient has a history of high blood pressure but has not been taking her meds. Denies any pain at this time. Review of systems: As per history of present illness and below otherwise all systems reviewed and negative. Past medical history: As per history of present illness and as reviewed below otherwise noncontributory. Surgical history: As per history of present illness and as reviewed below otherwise noncontributory. Social history: No reported history of drug or alcohol abuse. Family history: As per history of present illness and as reviewed below otherwise noncontributory. Physical exam: General: Well developed, well nourished in intoxicated, cooperative, clear speech HEENT: Atraumatic, normocephalic, pupils reactive, negative for conjunctival pallor or scleral icterus, mucous membranes moist, throat clear, neck supple, nontender, trachea midline. Lungs: Clear to auscultation, breath sounds equal bilaterally, chest nontender. Heart: S1S2, regular, negative for clicks, rubs, or JVD. Abdomen: Soft, nondistended, nontender. Negative for masses or hepatosplenomegaly. Negative for costovertebral tenderness. Pelvis: Stable nontender. Genitourinary: Deferred. Rectal: Deferred. Extremities: Atraumatic, negative for cords or calf pain. Neurovascular unremarkable. Neuro: Awake, alert, oriented. Cranial nerves II through XII unremarkable. Cerebellum unremarkable. Motor and sensory unremarkable throughout. Exam nonfocal. Non-tremulous Skin:warm and dry Diagnostics: Vital signs stable Therapeutics: Banana bag, Zofran ED Course: I did call Bindu Scanlon for how to go about having the family check the patient into detox. I did speak to the ER physician and he stated that she would need to go through psychiatry who runs the detox. I did consult psychiatrist who stated they did not do this and that they would need to go to the ER. Impression: Alcohol intoxication Prescriptions: Librium Plan: Patient will be discharged in her daughter's care instructed if she wants alcohol treatment and detox she needs to go to a detox center. Definitive disposition and diagnosis as appropriate pending reevaluation and review of above. - Related Data Allergies Allergy/AdvReac Type Severity Reaction Status Date / Time acetaminophen [From Vicodin] Allergy Itching Verified 11/30/17 15:04 codeine Allergy Rash Verified 11/30/17 15:04 hydrocodone [From Vicodin] Allergy Itching Verified 11/30/17 15:04 milk Allergy Diarrhea Verified 11/30/17 15:04 Home Meds: Home Meds Losartan [Cozaar] 100 mg PO DAILY 01/11/15 [History] Hydrochlorothiazide 25 mg PO DAILY 04/26/16 [History] traZODone HCl [Trazodone HCl] 2 tab PO BEDTIME 04/26/16 [History] Amitriptyline HCl 50 mg PO BEDTIME 11/17/17 [History] chlordiazePOXIDE [Librium] 25 mg PO TID #15 cap 11/30/17 [Rx] Past Medical History HEENT History: Reports: Impaired Vision Other HEENT History: wears glasses, has upper denture Cardiovascular History: Reports: Hypertension Respiratory History: Reports: None Gastrointestinal History: Reports: Chronic Constipation, Chronic Diarrhea, GERD Genitourinary History: Reports: None [employer]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: Musculoskeletal History: Reports: Back Pain, Chronic Other Musculoskeletal History: chronic shoulder pain Neurological History: Reports: Concussion Psychiatric History: Reports: Anxiety, Depression, PTSD Endocrine/Metabolic History: Reports: None Hematologic History: Reports: None Immunologic History: Reports: None Oncologic (Cancer) History: Reports: None Dermatologic History: Reports: None - Infectious Disease History Infectious Disease History: Reports: None - Past Surgical History Head Surgeries/Procedures: Reports: Other (See Below) HEENT Surgical History: Reports: None Cardiovascular Surgical History: Reports: None Female Surgical History: Reports: Tubal Ligation Endocrine Surgical History: Reports: None Neurological Surgical History: Reports: Other (See Below) Social & Family History - Family History Family Medical History: Noncontributory - Tobacco Use Smoking Status *Q: Current Every Day Smoker Years of Tobacco use: 30 Packs/Tins Daily: 0.5 - Caffeine Use Caffeine Use: Reports: Coffee Caffeine Use Comment: 1cup/day - Alcohol Use Days Per Week of Alcohol Use: 7 Number of Drinks Per Day: 10 Total Drinks Per Week: 70 - Recreational Drug Use Recreational Drug Use: No ED ROS GENERAL - Review of Systems Review Of Systems: ROS reveals no pertinent complaints other than HPI. ED EXAM, BEHAVIORAL HEALTH - Physical Exam Exam: See Below (See history of present illness) COURSE, BEHAVIORAL HEALTH COMP - Course Vital Signs: Last Vital Signs Temp 96.3 F 11/30/17 15:05 Pulse 94 11/30/17 17:09 Resp 15 11/30/17 17:09 BP 174/101 H 11/30/17 17:09 Pulse Ox 98 11/30/17 17:09 Orders, Labs, Meds: Active Orders 24 hr Category Date Time Status Sodium Chloride 0.9% [Saline Flush] Med 11/30/17 15:24 Active 10 ml FLUSH ASDIRECTED PRN Sodium Chloride 0.9% [Saline Flush] Med 11/30/17 15:24 Active 2.5 ml FLUSH ASDIRECTED PRN Saline Lock Insert [OM.PC] Stat Oth 11/30/17 15:21 Ordered Medication Orders Sodium Chloride (Saline Flush) 10 ml FLUSH ASDIRECTED PRN PRN Reason: Keep Vein Open Last Admin: 11/30/17 15:42 Dose: 10 ml Sodium Chloride (Saline Flush) 2.5 ml FLUSH ASDIRECTED PRN PRN Reason: Keep Vein Open Last Admin: 11/30/17 15:42 Dose: 2.5 ml Medications Generic Name Dose Route Start Last Admin Trade Name Freq PRN Reason Stop Dose Admin Sodium Chloride 10 ml 11/30/17 15:24 11/30/17 15:42 Saline Flush FLUSH 10 ml ASDIRECTED PRN Administration Keep Vein Open Sodium Chloride 2.5 ml 11/30/17 15:24 11/30/17 15:42 Saline Flush FLUSH 2.5 ml ASDIRECTED PRN Administration Keep Vein Open Discontinued Medications Generic Name Dose Route Start Last Admin Trade Name Freq PRN Reason Stop Dose Admin Hydroxyzine Pamoate 25 mg 11/30/17 15:24 11/30/17 15:41 Vistaril PO 11/30/17 15:25 25 mg ONETIME ONE Administration Multivitamins/Minerals 10 ml/ 1,011.2 mls @ 999 mls/hr 11/30/17 15:20 15:41 Thiamine HCl 100 mg/ Folic IV 11/30/17 16:20 999 mls/hr Acid 1 mg/ Sodium Chloride ONETIME ONE Administration Ondansetron HCl 4 mg 11/30/17 15:30 11/30/17 15:41 Zofran IVPUSH 11/30/17 15:31 4 mg ONETIME ONE Administration Departure - Departure Time of Disposition: 16:59 Disposition: Home, Self-Care 01 Condition: Good Clinical Impression: Alcohol intoxication Qualifiers: Complication of substance-induced condition: uncomplicated Qualified Code(s): F10.920 - Alcohol use, unspecified with intoxication, uncomplicated - Discharge Information *PRESCRIPTION DRUG MONITORING PROGRAM REVIEWED*: No *COPY OF PRESCRIPTION DRUG MONITORING REPORT IN PATIENT DARREL: No Prescriptions: chlordiazePOXIDE [Librium] 25 mg PO TID #15 cap Instructions: Alcohol Use Disorder Referrals: PCP,None [Primary Care Provider] - Forms: ED Department Discharge Additional Instructions: The following information is given to patients seen in the emergency department who are being discharged to home. This information is to outline your options for follow-up care. We provide all patients seen in our emergency department with a follow-up referral. The need for follow-up, as well as the timing and circumstances, are variable depending upon the specifics of your emergency department visit. If you don't have a primary care physician on staff, we will provide you with a referral. We always advise you to contact your personal physician following an emergency department visit to inform them of the circumstance of the visit and for follow-up with them and/or the need for any referrals to a consulting specialist. The emergency department will also refer you to a specialist when appropriate. This referral assures that you have the opportunity for follow-up care with a specialist. All of these measure are taken in an effort to provide you with optimal care, which includes your follow-up. Under all circumstances we always encourage you to contact your private physician who remains a resource for coordinating your care. When calling for follow-up care, please make the office aware that this follow-up is from your recent emergency room visit. If for any reason you are refused follow-up, please contact the [facility] Emergency Department at and asked to speak to the emergency department charge nurse. Take meds as instructed to not drink alcohol with these meds [facility] [address] [place] [id number] . - My Orders Last 24 Hours: My Active Orders 11/30/17 15:21 Saline Lock Insert [OM.PC] Stat 11/30/17 15:24 Sodium Chloride 0.9% [Saline Flush] 10 ml FLUSH ASDIRECTED PRN Sodium Chloride 0.9% [Saline Flush] 2.5 ml FLUSH ASDIRECTED PRN - Assessment/Plan Last 24 Hours: My Active Orders 11/30/17 15:21 Saline Lock Insert [OM.PC] Stat 11/30/17 15:24 Sodium Chloride 0.9% [Saline Flush] 10 ml FLUSH ASDIRECTED PRN Sodium Chloride 0.9% [Saline Flush] 2.5 ml FLUSH ASDIRECTED PRN
[2017-11-30 17:10] VITALS: BP 174/101
== END 2017-11-30 17:14 | disposition home or self-care (01) ==
LOC: MW.ED 14:58
DX: F10.120 Alcohol abuse with intoxication, uncomplicated (principal); I10 Essential (primary) hypertension; F17.210 Nicotine dependence, cigarettes, uncomplicated; Z88.5 Allergy status to narcotic agent; Z91.011 Allergy to milk products; Z79.899 Other long term (current) drug therapy
CPT/HCPCS: 96365; 96375; 99284; A9270; J2405; J3411; J7040

== ENCOUNTER 2018-05-03 18:12 | Emergency (ER) | payer MEDICAID ==
[2018-05-03 18:18] VITALS: BP 111/74
[2018-05-03] MEDS ORDERED: Diphtheria,Pertussis(Acell),Tetanus Vaccine 0.5 ML Syringe IM ONE (18:22)
[2018-05-03] MEDS ORDERED: Bacitracin Oint 1 GM U/D Packet TOP ONE (18:22)
--- NOTE | 2018-05-03 18:22 | EDM.PDOC ---
ED HPI GENERAL MEDICAL PROBLEM - General Chief Complaint: Head Injury Stated Complaint: FALL Time Seen by Provider: 05/03/18 18:14 Source of Information: Reports: Patient History Limitations: Reports: No Limitations - History of Present Illness INITIAL COMMENTS - FREE TEXT/NARRATIVE: HISTORY AND PHYSICAL: History of present illness: Patient is a 57-year-old female who presents to the emergency room with complaints of a fall, resulting in hitting her face. Patient states she had slipped and fallen from standing height; hitting the right side of her face on the floor. Patient does have an abrasion to the right upper forehead and along the right cheekbone. She denies any loss of consciousness. States that she was ambulatory on the scene and EMS was called. Reports she had had two beers this afternoon prior to this fall. Review of systems: As per history of present illness and below otherwise all systems reviewed and negative. Past medical history: As per history of present illness and as reviewed below otherwise noncontributory. Surgical history: As per history of present illness and as reviewed below otherwise noncontributory. Social history: See social history for further information Family history: As per history of present illness and as reviewed below otherwise noncontributory. Physical exam: General: Well-developed and well-nourished 57-year-old female. Alert and oriented. Nontoxic appearing and in no acute distress. HEENT: Abrasion noted to the right upper forehead above the eyebrow and along the cheek bone. Nontender, normocephalic, pupils equal and reactive bilaterally , negative for conjunctival pallor or scleral icterus, mucous membranes moist, TMs normal bilaterally, throat clear, neck supple, nontender, trachea midline. No drooling or trismus noted. No meningeal signs. No hot potato voice noted. Lungs: Clear to auscultation, breath sounds equal bilaterally, chest nontender. Heart: S1S2, regular rate and rhythm without overt murmur Abdomen: Soft, nondistended, nontender. Negative for masses or hepatosplenomegaly. Negative for costovertebral tenderness. Pelvis: Stable nontender. Genitourinary: Deferred. Rectal: Deferred. Skin: See HEENT. Otherwise skin is intact, warm, dry. No lesions or rashes noted. Extremities: Moves all extremities per self without difficulty or deficits. She was ambulatory without any problems. Negative for cords or calf pain. Neurovascular unremarkable. Neuro: Awake, alert, oriented. Cranial nerves II through XII unremarkable. Cerebellum unremarkable. Motor and sensory unremarkable throughout. Exam nonfocal. Notes: X-ray of the chest and pelvis are within normal limits. No acute findings noted. CT of the head and cervical spine show no acute findings. The maxillofacial CT shows mild degeneration of both TMJs. Otherwise unremarkable. Patient's vital signs remain stable. She does have a family member here to drive her home. Supportive care measures were reviewed and discussed. Voices understanding and is agreeable to plan of care. Denies any further questions or concerns at this time. Diagnostics: Head with maxillofacial CT, cervical spine CT, chest x-ray, pelvis x-ray, a CBC and CMP Therapeutics: Bacitracin, Tdap Prescription: None Impression: Head Injury Abrasion Plan: 1. Limit your use of alcohol 2. Follow the head injury instructions that we reviewed and that are printed in your packet 3. Follow up with your primary care provider as we discussed. Return to the ED as needed as discussed. Definitive disposition and diagnosis as appropriate pending reevaluation and review of above. - Related Data Allergies Allergy/AdvReac Type Severity Reaction Status Date / Time acetaminophen [From Vicodin] Allergy Itching Verified 05/03/18 18:17 codeine Allergy Rash Verified 05/03/18 18:17 hydrocodone [From Vicodin] Allergy Itching Verified 05/03/18 18:17 milk Allergy Diarrhea Verified 05/03/18 18:17 Home Meds: Home Meds Losartan [Cozaar] 50 mg PO DAILY 01/11/15 [History] Hydrochlorothiazide 25 mg PO DAILY 04/26/16 [History] traZODone HCl [Trazodone HCl] 150 mg PO BEDTIME 04/26/16 [History] Escitalopram [Lexapro] 10 mg PO DAILY 05/03/18 [History] busPIRone [Buspar] 10 mg PO DAILY 05/03/18 [History] Past Medical History HEENT History: Reports: Impaired Vision Other HEENT History: wears glasses, has upper denture Cardiovascular History: Reports: Hypertension Respiratory History: Reports: None Gastrointestinal History: Reports: Chronic Constipation, Chronic Diarrhea, GERD Genitourinary History: Reports: None [employer] History: Reports: Musculoskeletal History: Reports: Back Pain, Chronic Other Musculoskeletal History: chronic shoulder pain Neurological History: Reports: Concussion Psychiatric History: Reports: Anxiety, Depression, PTSD Endocrine/Metabolic History: Reports: None Hematologic History: Reports: None Immunologic History: Reports: None Oncologic (Cancer) History: Reports: None Dermatologic History: Reports: None - Infectious Disease History Infectious Disease History: Reports: None - Past Surgical History Head Surgeries/Procedures: Reports: Other (See Below) HEENT Surgical History: Reports: None Cardiovascular Surgical History: Reports: None Female Surgical History: Reports: Tubal Ligation Endocrine Surgical History: Reports: None Neurological Surgical History: Reports: Other (See Below) Social & Family History - Family History Family Medical History: Noncontributory - Caffeine Use Caffeine Use: Reports: Coffee Caffeine Use Comment: 1cup/day ED ROS GENERAL - Review of Systems Review Of Systems: ROS reveals no pertinent complaints other than HPI. ED EXAM, HEAD INJURY - Physical Exam Exam: See Below (See dictation) Course - Vital Signs Last Recorded V/S: Last Vital Signs Temp 97.4 F 05/03/18 18:13 Pulse 82 05/03/18 18:13 Resp 18 05/03/18 18:13 BP 111/74 05/03/18 18:13 Pulse Ox 98 05/03/18 18:13 - Orders/Labs/Meds Orders: Active Orders 24 hr Category Date Time Status Vaccines to be Administered [RC] PER UNIT ROUTINE Care 05/03/18 18:22 Active Labs: Laboratory Tests 05/03/18 05/03/18 05/03/18 Range/Units 18:44 18:44 18:44 WBC 6.24 (4.0-11.0) K/uL RBC 4.92 (4.30-5.90) M/uL Hgb 15.0 (12.0-16.0) g/dL Hct 44.4 (36.0-46.0) % MCV 90.2 (80.0-98.0) fL MCH 30.5 (27.0-32.0) pg MCHC 33.8 (31.0-37.0) g/dL RDW Std Deviation 46.6 (28.0-62.0) fl RDW Coeff of Sudheer 14 (11.0-15.0) % Plt Count 296 (150-400) K/uL MPV 9.40 (7.40-12.00) fL Neut % (Auto) 40.9 L (48.0-80.0) % Lymph % (Auto) 53.2 H (16.0-40.0) % [place] % (Auto) 4.3 (0.0-15.0) % Eos % (Auto) 1.1 (0.0-7.0) % Baso % (Auto) 0.5 (0.0-1.5) % Neut # (Auto) 2.6 (1.4-5.7) K/uL Lymph # (Auto) 3.3 H (0.6-2.4) K/uL [place] # (Auto) 0.3 (0.0-0.8) K/uL Eos # (Auto) 0.1 (0.0-0.7) K/uL Baso # (Auto) 0.0 (0.0-0.1) K/uL Nucleated RBC % 0.0 /100WBC Nucleated RBCs # 0 K/uL INR 0.96 Sodium 147 H (136-145) mmol/L Potassium 3.9 (3.5-5.1) mmol/L Chloride 110 H (98-107) mmol/L Carbon Dioxide 26.0 (21.0-32.0) mmol/L BUN 11 (7.0-18.0) mg/dL Creatinine 0.9 (0.6-1.0) mg/dL Est Cr Clr Drug Dosing 60.99 mL/min Estimated GFR (MDRD) > 60.0 ml/min Glucose 92 (74-106) mg/dL Calcium 9.0 (8.5-10.1) mg/dL Total Bilirubin 0.1 L (0.2-1.0) mg/dL AST 23 (15-37) IU/L ALT 28 (14-63) IU/L Alkaline Phosphatase 86 (46-116) U/L Total Protein 8.3 H (6.4-8.2) g/dL Albumin 4.2 (3.4-5.0) g/dL Globulin 4.1 H (2.6-4.0) g/dL Albumin/Globulin Ratio 1.0 (0.9-1.6) Meds: Medications Discontinued Medications Generic Name Dose Route Start Last Admin Trade Name Freq PRN Reason Stop Dose Admin Bacitracin 1 dose 05/03/18 18:22 05/03/18 18:37 Bacitracin Oint 1 Gm TOP 05/03/18 18:23 1 dose ONETIME ONE Administration Diphtheria/Tetanus/Acell Pertussis 0.5 ml 05/03/18 18:22 05/03/18 18:37 Adacel IM 05/03/18 18:23 0.5 ml .ONCE ONE Administration Departure - Departure Time of Disposition: 19:43 Disposition: Home, Self-Care 01 Clinical Impression: Abrasion Head injury Qualifiers: Encounter type: initial encounter Qualified Code(s): S09.90XA - Unspecified injury of head, initial encounter - Discharge Information Instructions: Head Injury, Adult, [id number]-[id number] Referrals: PCP,None [Primary Care Provider] - Forms: ED Department Discharge Additional Instructions: The following information is given to patients seen in the emergency department who are being discharged to home. This information is to outline your options for follow-up care. We provide all patients seen in our emergency department with a follow-up referral. The need for follow-up, as well as the timing and circumstances, are variable depending upon the specifics of your emergency department visit. If you don't have a primary care physician on staff, we will provide you with a referral. We always advise you to contact your personal physician following an emergency department visit to inform them of the circumstance of the visit and for follow-up with them and/or the need for any referrals to a consulting specialist. The emergency department will also refer you to a specialist when appropriate. This referral assures that you have the opportunity for follow-up care with a specialist. All of these measure are taken in an effort to provide you with optimal care, which includes your follow-up. Under all circumstances we always encourage you to contact your private physician who remains a resource for coordinating your care. When calling for follow-up care, please make the office aware that this follow-up is from your recent emergency room visit. If for any reason you are refused follow-up, please contact the [facility] Emergency Department at and asked to speak to the emergency department charge nurse. [facility] [address] [place] [id number] [facility] [address] [place] [id number] 1. Limit your use of alcohol 2. Follow the head injury instructions that we reviewed and that are printed in your packet 3. Follow up with your primary care provider as we discussed. Return to the ED as needed as discussed. - My Orders Last 24 Hours: My Active Orders 05/03/18 18:22 Vaccines to be Administered [RC] PER UNIT ROUTINE - Assessment/Plan Last 24 Hours: My Active Orders 05/03/18 18:22 Vaccines to be Administered [RC] PER UNIT ROUTINE
--- NOTE | 2018-05-03 19:02 | CR ---
INDICATION: fell out of door/pain Single AP view Findings: The lungs are clear. Pulmonary vascularity, mediastinum and cardiac silhouette are within normal limits. No effusions and no pneumothorax. Osseous structures appear unremarkable. Cervical fusion hardware extends above the field of view. Impression: No evidence of acute cardiopulmonary disease. Dictated by: Dashawn Hung MD @ 05/03/2018 19:01:10 (Electronically Signed)
--- NOTE | 2018-05-03 19:02 | CR ---
INDICATION: Pain after fall. TECHNIQUE: One view. IMPRESSION: No fracture or bone lesion. Hips appear appropriately aligned on this single view. Facet arthrosis and mild degenerative disc disease at the lower lumbar spine. Dictated by Dashawn Hung MD @ May 03 2018 7:00PM Signed by Dr. Dashawn Hung @ May 03 2018 7:00PM
[2018-05-03 19:09] LABS: CHLORIDE,CL 110 mmol/L (98-107); SODIUM,NA 147 mmol/L (136-145)
--- NOTE | 2018-05-03 19:31 | CT ---
INDICATION: Pain after fall. TECHNIQUE: CT Head without contrast. COMPARISON: None. FINDINGS: CSF spaces: Within normal limits for age. Brain parenchyma: The lainez-white differentiation is normal. No sign of mass, hemorrhage, or midline shift. Skull base and calvarium: The visualized paranasal sinuses and mastoid air cells are clear. The visualized orbits are grossly unremarkable. No skull fractures. . IMPRESSION: Unremarkable noncontrast head CT. Please note that all CT scans at this facility use dose modulation, iterative reconstruction, and/or weight-based dosing when appropriate to reduce radiation dose to as low as reasonably achievable. Dictated by Dashawn Hung MD @ May 03 2018 7:30PM Signed by Dr. Dashawn Hung @ May 03 2018 7:30PM
--- NOTE | 2018-05-03 19:35 | CT ---
INDICATION: Pain after fall. TECHNIQUE: Noncontrast images cervical spine with axial, coronal and sagittal reformats. FINDINGS: Instrumented anterior and interbody fusion C3-C7. No acute fracture or traumatic malalignment. No bony encroachment of central canal. Mild degenerative spurring anterior arch of C1 and dens of C2. Uncovertebral hypertrophy causes mild narrowing multiple neural foramina. IMPRESSION: No acute findings. Chronic surgical changes fusion. Please note that all CT scans at this facility use dose modulation, iterative reconstruction, and/or weight-based dosing when appropriate to reduce radiation dose to as low as reasonably achievable. Dictated by Dashawn Hung MD @ May 03 2018 7:35PM Signed by Dr. Dashawn Hung @ May 03 2018 7:35PM
--- NOTE | 2018-05-03 19:39 | CT ---
INDICATION: Pain after fall. TECHNIQUE: Noncontrast images of the face with axial, coronal and sagittal reformats. FINDINGS: Mandible is intact. Mild degeneration of the temporomandibular joints. Small lentiform 3 mm ossicle anterior margin left TMJ. Paranasal sinuses are appropriately aerated. No nasal fracture. No orbital fracture. Globes appear normal. Impression : 1. No acute findings. 2. Mild degeneration of both TMJ. Ossicle in the anterior left joint. Please note that all CT scans at this facility use dose modulation, iterative reconstruction, and/or weight-based dosing when appropriate to reduce radiation dose to as low as reasonably achievable. Dictated by Dashawn Hung MD @ May 03 2018 7:35PM Signed by Dr. Dashawn Hung @ May 03 2018 7:38PM
== END 2018-05-03 19:59 | disposition home or self-care (01) ==
LOC: MW.ED 18:12
DX: S00.81XA Abrasion of other part of head, initial encounter (principal); I10 Essential (primary) hypertension; Z91.011 Allergy to milk products; Z88.5 Allergy status to narcotic agent; Z88.8 Allergy status to other drugs, medicaments and biological substances; Z79.899 Other long term (current) drug therapy; Z23 Encounter for immunization; W18.00XA Striking against unspecified object with subsequent fall, initial encounter
CPT/HCPCS: 36415; 70450; 70450-26; 70486; 70486-26; 71045; 71045-26; 72125; 72125-26; 72170; 72170-26; 80053; 85025; 85610; 90471; 90715; 99283; 99284-25